=== PATIENT | male | born 1940 | race Caucasian/White ===

== ENCOUNTER 2019-03-16 00:20 | Inpatient (IN) | payer OTHER ==
[~2019-03-16] VITALS: Ht 165.1 cm; Wt 100.0 kg
[~2019-03-16 00:20] MED LIST: ASPI-817 PO; ATOR20TA38 PO; BECL8.7A INH; DOXY100T21 PO; ERGO500013 PO; FAMO20TA18 PO; FENO134C PO; FLUC100T39 PO; GABA300C16 PO; HYDR-3666 PO; IPRA3AMP29 HHN; LEVA1.2523 HHN; LEVA15HF6 INH; LIRA0.6P2 SQ; METF100010 PO; METO-319 PO; NATE120T PO; NYST1POW22 TOPICAL
[2019-03-16 00:29] VITALS: Ht 165.1 cm; Wt 100.0 kg
[2019-03-16] MEDS ORDERED: ACETAMINOPHEN 325 MG TAB PO STA (00:29)
[2019-03-16] MEDS ORDERED: SODIUM CHLORIDE 0.9% 1L BAG IV* STA (00:29)
[2019-03-16] MEDS ORDERED: CEFEPIME 2GM/50 ML (PMX) 50 ML IVPB STA (00:29)
[2019-03-16] MEDS ORDERED: VANCOMYCIN 1 GM (PMX) 250 ML IVPB ONE (00:30)
[2019-03-16] MEDS ORDERED: morphine 4 MG/ML VIAL IV STA (01:21)
[2019-03-16] MEDS ORDERED: CEFEPIME 1GM/50 ML (PMX) 50 ML IVPB STA (01:21)
[2019-03-16] MEDS ORDERED: ONDANSETRON 4 MG INJ IV STA (01:21)
--- NOTE | 2019-03-16 01:55 | ERD ---
ER Documentation Chief Complaint Chief Complaint [id number],from home,SOB HPI Is a 19-year-old male brought in by rescue with complaints of shortness of breath cough. Cough is mild productive. No fevers no chills. No other current complaints. Patient has been getting progressively short of breath over the past few days. ROS All systems reviewed and are negative except as per history of present illness. Medications Home Meds Active Scripts Doxycycline Monohydrate* (Doxycycline Monohydrate*) 100 Mg Tablet, 100 MG PO BID for 7 Days, TAB for Bronchitis Prov:SCOTT QUEZADA 08/20/16 Nystatin (Nystatin Powder) 1 Each Powder.ea., 1 APPLIC TOPICAL BID for 7 Days, #1 BOTTLE to affected area, perineal area Prov:SCOTT QUEZADA 08/20/16 Aspirin* (Aspirin* EC) 81 Mg Tablet.dr, 81 MG PO DAILY for 30 Days, 3 Refills Prov:SCOTT QUEZADA 08/20/16 Ipratropium-Albuterol (Ipratropium-Albuterol) 0.5-3 Mg/3 Ml Ampul.neb, 3 ML HHN Q8 for 30 Days, 3 Refills Prov:SCOTT QUEZADA 08/20/16 Levalbuterol Hcl* (Xopenex*) 1.25 Mg/0.5 Ml Vial.neb, 1.25 MG HHN Q6H RESP THERAPY PRN for wheeze/sob, #90 3 Refills Prov:SCOTT QUEZADA 08/20/16 Fluconazole* (Fluconazole*) 100 Mg Tablet, 100 MG PO DAILY for 7 Days, TAB Prov:SCOTT QUEZADA 08/20/16 Nateglinide* (Nateglinide*) 120 Mg Tablet, 120 MG PO AC MEALS for 30 Days, TAB 3 Refills Prov:SCOTT QUEZADA 08/20/16 Reported Medications Metoprolol Succinate* (Toprol XL*) 50 Mg Tab.er.24h, 50 MG PO DAILY, #30 TAB 08/18/16 Fenofibrate, Micronized (Fenofibrate) 134 Mg Capsule, 134 MG PO DAILY, CAP 08/18/16 Liraglutide (Victoza 3-Bong) 0.6 Mg/0.1 Ml Pen.injctr, 1.8 MG SQ DAILY, SYR 08/18/16 Levalbuterol* (Xopenex* HFA) 15 Gm Inha, 1 PUFFS INH Q8H PRN for WHEEZING AND SOB, INHALER 08/18/16 Beclomethasone Dip* (Qvar 40*) 7.3 Gm Inha, 1 PUFF INH BID, #1 INHALER 08/18/16 Ergocalciferol (Vitamin D2) (VITAMIN D2) 50,000 Unit Capsule, 21420 UNIT PO Q7D, CAP 08/18/16 Metformin Hcl* (Metformin Hcl*) 1,000 Mg Tablet, 1000 MG PO WITH BREAKFAST DINNE, #60 TAB 08/18/16 Atorvastatin Calcium* (Atorvastatin Calcium*) 20 Mg Tablet, 20 MG PO QHS, #30 TAB 08/18/16 Famotidine* (Famotidine*) 20 Mg Tablet, 20 MG PO BID, #60 TAB 08/18/16 Hydrocodone/Acetaminophen (Lorcet Hd 10-325 mg Tablet) 1 Each Tablet, 1 EACH PO QID, TAB 08/18/16 Gabapentin* (Gabapentin*) 300 Mg Capsule, 300 MG PO TID, #90 CAP 08/18/16 Allergies Allergies: Coded Allergies: No Known Allergy (Unverified , 08/18/16) PMhx/Soc History of Surgery: Yes (PTCA 1997, 1999 APPENDECTOMY) Anesthesia Reaction: No Hx Neurological Disorder: No Hx Respiratory Disorders: Yes (ASTHMA) Hx Cardiac Disorders: Yes (HTN,CHESTPAIN) Hx Psychiatric Problems: No Hx Miscellaneous Medical Probl: No Hx Alcohol Use: Yes (WINE DURING FAMILY OCCASIONS) Hx Substance Use: No Hx Tobacco Use: Yes (1- 1 1/2 PACKS/DAY) Smoking Status: Light tobacco smoker Physical Exam Vitals Vital Signs Date Temp Pulse Resp B/P (MAP) Pulse Ox O2 O2 Flow FiO2 Time Delivery Rate 03/16/19 102.9 00:40 03/16/19 103.9 110 23 143/69 90 00:29 (93) 03/16/19 Nasal 2.0 00:27 Cannula 03/16/19 Nasal 2 00:27 Cannula Physical Exam Const: No acute distress Head: Atraumatic Eyes: Normal Conjunctiva ENT: Normal External Ears, Nose and Mouth. Neck: Full range of motion. No meningismus. Resp: Clear to auscultation bilaterally Cardio: Regular rate and rhythm, no murmurs Abd: Soft, non tender, non distended. Normal bowel sounds Skin: No petechiae or rashes Back: No midline or flank tenderness Ext: No cyanosis, or edema Neur: Awake and alert Psych: Normal Mood and Affect Result Diagram: 03/16/192 03/16/192 Results 24 hrs Laboratory Tests Test 03/16/19 00:31 03/16/19 00:32 POC Venous Lactate 1.0 mmol/L White Blood Count 9.5 10^3/ul Red Blood Count 4.15 10^6/ul Hemoglobin 11.3 g/dl Hematocrit 35.2 % Mean Corpuscular Volume 84.8 fl Mean Corpuscular Hemoglobin 27.2 pg Mean Corpuscular Hemoglobin Concent 32.1 g/dl Red Cell Distribution Width 14.9 % Platelet Count 261 10^3/UL Mean Platelet Volume 10.0 fl Immature Granulocytes % 0.700 % Neutrophils % 73.0 % Lymphocytes % 14.2 % Monocytes % 10.5 % Eosinophils % 1.2 % Basophils % 0.4 % Nucleated Red Blood Cells % 0.0 /100WBC Immature Granulocytes # 0.070 10^3/ul Neutrophils # 6.9 10^3/ul Lymphocytes # 1.3 10^3/ul Monocytes # 1.0 10^3/ul Eosinophils # 0.1 10^3/ul Basophils # 0.0 10^3/ul Nucleated Red Blood Cells # 0.0 10^3/ul Prothrombin Time 14.8 Sec Prothrombin Time Ratio 1.2 INR International Normalized Ratio 1.15 Activated Partial Thromboplast Time 40.5 Sec Sodium Level 132 mmol/L Potassium Level 5.6 mmol/L Chloride Level 100 mmol/L Carbon Dioxide Level 19 mmol/L Anion Gap 13 Blood Urea Nitrogen 44 mg/dl Creatinine 2.13 mg/dl Est Glomerular Filtrat Rate mL/min mL/min Glucose Level 203 mg/dl Calcium Level 10.1 mg/dl Total Bilirubin 0.3 mg/dl Direct Bilirubin 0.00 mg/dl Indirect Bilirubin 0.3 mg/dl Aspartate Amino Transf (AST/SGOT) 70 IU/L Alanine Aminotransferase (ALT/SGPT) 68 IU/L Alkaline Phosphatase 76 IU/L Troponin I 0.022 ng/ml Total Protein 7.8 g/dl Albumin 4.1 g/dl Globulin 3.70 g/dl Albumin/Globulin Ratio 1.10 Current Medications Medications Dose Sig/Henri Start Time Status Last (Trade) Ordered Route PRN Stop Time Admin Dose Reason Admin Sodium 3,000 ml BOLUS OVER 2 03/16/19 DC 03/16/19 Chloride HOURS STAT 00:29 00:41 (NS) IV* 03/16/19 00:32 650 mg ONCE STAT 03/16/19 DC 03/16/19 Acetaminophen PO 00:29 00:40 (Tylenol 03/16/19 00:32 Tab) Cefepime HCl 50 ml @ ONCE STAT 03/16/19 DC 03/16/19 100 mls/hr IVPB 00:29 00:40 03/16/19 00:58 Vancomycin 250 ml @ ONCE ONCE 03/16/19 03/16/19 HCl 125 mls/hr IVPB 00:30 01:19 03/16/19 02:29 Cefepime HCl 50 ml @ ONCE STAT 03/16/19 DC 100 mls/hr IVPB 01:21 03/16/19 01:50 Morphine 4 mg ONCE STAT 03/16/19 DC 03/16/19 Sulfate IV 01:21 01:39 (morphine) 03/16/19 01:25 Ondansetron 4 mg ONCE STAT 03/16/19 DC 03/16/19 HCl (Zofran IV 01:21 01:38 Inj) 03/16/19 01:25 Procedures/MDM EKG: Rate/Rhythm: [Normal Sinus Rhythm] QRS, ST, T-waves: [No changes consistent w/ acute ischemia] Impression: [No evidence of ischemia or arrhythmia] Chest X-ray 1V Interpreted by me: Soft Tissue: No acute abnormalities Bones: No acute abnormalities Mediastinum/Cardiac Silhouette/Lungs: Right lower lobe infiltrate Medical decision makin-year-old male shortness of breath with evidence of right lower lobe pneumonia. Start antibiotics. No evidence of sepsis with negative lactic acid normalized vital signs. Patient will be admitted to Dr. Ayon for further evaluation and management to medical surgical floor Departure Diagnosis: Primary Impression: Pneumonia Pneumonia type: due to unspecified organism Laterality: unspecified laterality Lung location: unspecified part of lung Qualified Codes: J18.9 - Pneumonia, unspecified organism Condition: Serious KARI MOONEY Mar 16, 2019 01:55
[2019-03-16] MEDS ORDERED: ONDANSETRON 4 MG INJ IV PRN (02:00)
[2019-03-16] MEDS ORDERED: ACETAMINOPHEN 325 MG TAB PO PRN (02:00)
[2019-03-16] MEDS ORDERED: ATOR-2 PO (02:52)
[2019-03-16] MEDS ORDERED: LIRA0.6P SQ (03:59)
[2019-03-16] MEDS ORDERED: DAPA10TA PO (03:59)
[2019-03-16] MEDS ORDERED: INSU100I12 SQ ×2 (03:59)
[2019-03-16] MEDS ORDERED: OMEG-101 PO (03:59)
[2019-03-16] MEDS ORDERED: LANT3I SC (03:59)
[2019-03-16] MEDS ORDERED: SPIR50TA4 PO (03:59)
[2019-03-16] MEDS ORDERED: AMLO1CAP8 PO (03:59)
[2019-03-16] MEDS ORDERED: BUME1TAB PO (03:59)
--- NOTE | 2019-03-16 09:03 | HP ---
Date/Time of Note Date/Time of Note DATE: 03/16/19 TIME: 09:00 Assessment/Plan VTE Prophylaxis Pharmacological prophylaxis: LMWH Lines/Catheters IV Catheter Type (from Nrs): Saline Lock Assessment/Plan Hospital Course 79 years old male with history of heavy smoking, COPD presenting with shortness of breath in the setting of COPD exacerbation and multilobar pneumonia. Also acute renal failure and hyperkalemia noted #Multilobar lung infiltrate #CAP (community acquired pneumonia) #COPD exacerbation #SOB (shortness of breath) -Admit to telemetry -IV ceftriaxone and azithromycin for community-acquired pneumonia, ID consulted -Pulm consult -IV Solu-Medrol 40 every 8 hours and DuoNeb for COPD exacerbation #Right Pleuritic chest pain D-dimer elevated. Cannot do CT angiogram given NILTON -VQ scan to rule out pulmonary embolism # NILTON (acute kidney injury), prerenal azotemia #Hyperkalemia -IV bicarbonate drip for NILTON and hyperkalemia -Monitor creatinine -Avoid nephrotoxic agents, no dose medications #CAD S/P percutaneous coronary angioplasty Recent LHC at [facility] with unremarkable results -continue aspirin, statin, beta-romana - Serial troponin # Heavy smoker Counselled extensively - Nicotine patch # Diabetes mellitus with insulin therapy - A1C - Holding oral agents while inpatient - Lantus and sliding scale - ADA diet #HTN -continue Norvasc and metoprolol -Holding FABIAN inhibitor given NILTON and hyperkalemia #PPX: Lovenox and Pepcid Problems: (1) Multilobar lung infiltrate (2) CAP (community acquired pneumonia) (3) SOB (shortness of breath) (4) COPD exacerbation (5) NILTON (acute kidney injury) (6) Pleuritic chest pain (7) CAD S/P percutaneous coronary angioplasty (8) Heavy smoker (9) Hyperkalemia (10) Diabetes mellitus with insulin therapy Result Diagram: 03/16/19 0032 03/16/19 0032 Results 24hrs Laboratory Tests Test 03/16/19 00:31 03/16/19 00:32 03/16/19 02:06 03/16/19 03:29 POC Venous Lactate 1.0 White Blood Count 9.5 # Red Blood Count 4.15 L Hemoglobin 11.3 L Hematocrit 35.2 L Mean Corpuscular 84.8 Volume Mean Corpuscular 27.2 L Hemoglobin Mean Corpuscular 32.1 Hemoglobin Concent Red Cell 14.9 H Distribution Width Platelet Count 261 Mean Platelet Volume 10.0 Immature 0.700 H Granulocytes % Neutrophils % 73.0 Lymphocytes % 14.2 L Monocytes % 10.5 Eosinophils % 1.2 Basophils % 0.4 Nucleated Red Blood 0.0 Cells % Immature 0.070 H Granulocytes # Neutrophils # 6.9 Lymphocytes # 1.3 Monocytes # 1.0 H Eosinophils # 0.1 Basophils # 0.0 Nucleated Red Blood 0.0 Cells # Prothrombin Time 14.8 Prothrombin Time 1.2 Ratio INR International 1.15 Normalized Ratio Activated 40.5 H Partial Thromboplast Time Sodium Level 132 L Potassium Level 5.6 H Chloride Level 100 Carbon Dioxide Level 19 L Anion Gap 13 Blood Urea Nitrogen 44 H Creatinine 2.13 H Est Glomerular Filtrat Rate mL/min Glucose Level 203 Calcium Level 10.1 Total Bilirubin 0.3 Direct Bilirubin 0.00 Indirect Bilirubin 0.3 Aspartate Amino 70 H Transf (AST/SGOT) Alanine 68 Aminotransferase (AL T/SGPT) Alkaline Phosphatase 76 Troponin I 0.022 Total Protein 7.8 Albumin 4.1 Globulin 3.70 H Albumin/Globulin 1.10 Ratio Urine Color YELLOW Urine Clarity CLEAR Urine pH 5.0 Urine Specific 1.017 [place] Urine Ketones TRACE A Urine Nitrite NEGATIVE Urine Bilirubin NEGATIVE Urine Urobilinogen NEGATIVE Urine Leukocyte NEGATIVE Esterase Urine Hemoglobin NEGATIVE Urine Glucose 3+ H Urine Total Protein NEGATIVE Lactic Acid Level 0.8 Test 03/16/19 05:25 Lactic Acid Level 0.8 HPI/ROS Admit Date/Time Admit Date/Time Hx of Present Illness 79 years old on male with past medical history of COPD, CAD status post stent, heavy smoking, insulin-dependent diabetes, hypertension, hyperlipidemia who presents with 2 days of shortness of breath associated with mild productive cough and right lower pleuritic chest pain. Denies fever or chills. Denies Orthopnea, denies paroxysmal nocturnal dyspnea , denies increasing peripheral edema . He was admitted to [facility] in Oct 23 for elevated troponin where LHC was done with unremarkable results. He smokes 1 pck a day and has smoked for most of his life. He is not willing to quit. Work up in the ED was significant for mild hyponatremia, hyperkalemia at 5.6, acute renal failure and chest x-ray findings suggestive of Right mid lung pneumonia. PMH/Family/Social Past Medical History Medications Current Medications Ondansetron HCl (Zofran Inj) 4 mg BRIDGE ORDER PRN IV NAUSEA/VOMITING; Start 03/16/19 at 02:00; Stop 03/17/19 at 01:59 Acetaminophen (Tylenol Tab) 650 mg ER BRIDGE PRN PO .MILD PAIN 1-3 OR TEMP; Start 03/16/19 at 02:00; Stop 03/17/19 at 01:59 Coded Allergies: No Known Allergy (Unverified , 03/16/19) Past Surgical History Past Surgical Hx: angioplasty Family History Significant Family History: no pertinent family hx, heart disease Social History Smoking Status: Light tobacco smoker Exam/Review of Systems Vital Signs Vitals Vital Signs Date Temp Pulse Resp B/P (MAP) Pulse Ox O2 O2 Flow FiO2 Time Delivery Rate 03/16/19 85 22 106/51 95 Nasal 2.0 05:30 (69) Cannula 03/16/19 102.9 00:40 Exam Exam Gen.: In no acute distress, pleasant and cooperative Eyes: Anicteric, conjunctiva normal, PERRLA, EOM intact HEENT: Normocephalic, atraumatic, hearing grossly intact, oral mucosa dry no oral lesions Neck: Supple, no masses, trachea midline Cardiovascular: Regular rate and rhythm, no peripheral edema, no murmurs, no gallops, no rubs Respiratory: no use of accessory muscles of respiration, bilateral inspiratory wheezes, expiration mildly prolonged Extremities: No cyanosis, no edema, no calf tenderness, pulses bilaterally palpable, extremities warm and perfused Abdomen: Soft, not distended, nontender, bowel sounds present, no guarding, no rebound Neurological: Alert and oriented x3, speech normal, CN 2-12 no deficit, no motor or sensory deficit, coordination normal : No Aguilar catheter Heme: No acute bleeding, no ecchymosis or petechia Psych: No anxiety depression, mood and affect appropriate GEOVANY OGDEN MD Mar 16, 2019 09:03
[2019-03-16] MEDS ORDERED: DOCUSATE SODIUM 100 MG CAP PO PRN (09:30)
[2019-03-16] MEDS ORDERED: NACL 0.9% 3 ML SYG IV SCH (09:30)
[2019-03-16] MEDS ORDERED: AMLODIPINE 10 MG TAB PO ONE (09:30)
[2019-03-16] MEDS: ASPIRIN (EC) 81 MG TAB PO SCH (10:06)
[2019-03-16] MEDS: CEFTRIAXONE 1 GM/50 ML (PMX) 50 ML IVPB SCH (10:08)
[2019-03-16] MEDS: SOD CHLORIDE 0.9% 1,000 ML IV SCH ×2 (10:19→19:03)
[2019-03-16] MEDS ORDERED: GLUCAGON 1 MG INJ IM PRN (11:00)
[2019-03-16] MEDS ORDERED: GLUCOSE GEL 15 GRAM TUBE BUCCAL PRN (11:00)
[2019-03-16] MEDS ORDERED: DEXTROSE 50% 50 ML SYRINGE IV PRN ×2 (11:00)
[2019-03-16] MEDS ORDERED: GLUCOSE GEL 15 GRAM TUBE PO PRN ×2 (11:00)
[2019-03-16] MEDS: AZITHROMYCIN 500MG/NS (PMX) 250 ML IV SCH (11:02)
[2019-03-16] MEDS: HYDROCODONE/APAP (5/325) TAB PO PRN ×2 (12:40→20:44)
[2019-03-16] MEDS: IPRATROPIUM (NEB) 0.5 MG/2.5 ML AMP NEB SCH ×3 (13:10→20:31)
[2019-03-16] MEDS: ALBUTEROL 0.083% (NEB) 2.5 MG/3 ML AMP NEB SCH ×3 (13:10→20:31)
[2019-03-16 13:29] VITALS: BP 137/66; PULSE 91; RESP 22
[2019-03-16] MEDS ORDERED: NA BICARBONATE 8.4% 50 ML SYG IV ONE (13:30)
[2019-03-16] MEDS: METHYLPREDNISOLONE 125 MG INJ IV SCH ×2 (13:48→22:56)
[2019-03-16] MEDS: GABAPENTIN 300 MG CAP PO SCH ×2 (13:48→20:44)
[2019-03-16] MEDS: INSULIN ASPART [NOVOLOG] 3 ML PEN SC SCH ×3 (14:09→20:46)
[2019-03-16] MEDS ORDERED: SODIUM BICARBONATE (IV ADD) 50 MEQ in SOD CHLORIDE 0.45% 1,000 ML IV SCH (15:00)
--- NOTE | 2019-03-16 18:29 | CONS ---
Consultation Date/Type/Reason Admit Date/Time Date/Time of Note DATE: 03/16/19 TIME: 18:29 Past Medical History Home Meds Active Scripts Doxycycline Monohydrate* (Doxycycline Monohydrate*) 100 Mg Tablet, 100 MG PO BID for 7 Days, TAB for Bronchitis Prov:SCOTT QUEZADA 08/20/16 Nystatin (Nystatin Powder) 1 Each Powder.ea., 1 APPLIC TOPICAL BID for 7 Days, #1 BOTTLE to affected area, perineal area Prov:SCOTT QUEZADA 08/20/16 Aspirin* (Aspirin* EC) 81 Mg Tablet.dr, 81 MG PO DAILY for 30 Days, 3 Refills Prov:SCOTT QUEZADA 08/20/16 Ipratropium-Albuterol (Ipratropium-Albuterol) 0.5-3 Mg/3 Ml Ampul.neb, 3 ML HHN Q8 for 30 Days, 3 Refills Prov:SCOTT QUEZADA 08/20/16 Levalbuterol Hcl* (Xopenex*) 1.25 Mg/0.5 Ml Vial.neb, 1.25 MG HHN Q6H RESP THERAPY PRN for wheeze/sob, #90 3 Refills Prov:SCOTT QUEZADA 08/20/16 Fluconazole* (Fluconazole*) 100 Mg Tablet, 100 MG PO DAILY for 7 Days, TAB Prov:SCOTT QUEZADA 08/20/16 Nateglinide* (Nateglinide*) 120 Mg Tablet, 120 MG PO AC MEALS for 30 Days, TAB 3 Refills Prov:SCOTT QUEZADA 08/20/16 Reported Medications Amlodipine Besylate/Benazepril (Amlodipine-Benazepril 5-10 mg) 1 Each Capsule, 1 TAB PO DAILY for 30 Days, #30 03/16/19 Insulin Glargine* (Lantus*) 100 Unit/Ml Soln, 40 UNIT SC QHS, #1 VIAL 03/16/19 Liraglutide (Victoza 2-Bong) 0.6 Mg/0.1 Ml Pen.injctr, 0.6 MG SQ QAM, SYR 03/16/19 Insulin Lispro (Humalog Kwikpen U-100) 100 Unit/1 Ml Insuln.pen, 18 UNIT SQ AC LUNCH AND DINNER, EA 03/16/19 Insulin Lispro (Humalog Kwikpen U-100) 100 Unit/1 Ml Insuln.pen, 9 UNIT SQ AC BREAKFAST, EA 03/16/19 [place]-3 Acid Ethyl Esters ([place]-3 Acid Ethyl Esters) 1 Gm Capsule, 1 GM PO BID for 30 Days 03/16/19 Spironolactone* (Aldactone*) 50 Mg Tablet, 50 MG PO DAILY for 30 Days, #30 03/16/19 Bumetanide* (Bumetanide*) 1 Mg Tablet, 1 MG PO BID for 30 Days, #30 03/16/19 Dapagliflozin Propanediol (Farxiga) 10 Mg Tablet, 10 MG PO QPM for 30 Days, #30 03/16/19 Atorvastatin* (Atorvastatin*) 80 Mg Tablet, 80 MG PO QHS, #30 TAB 03/16/19 Metoprolol Succinate* (Toprol XL*) 50 Mg Tab.er.24h, 50 MG PO DAILY, #30 TAB 08/18/16 Fenofibrate, Micronized (Fenofibrate) 134 Mg Capsule, 134 MG PO DAILY, CAP 08/18/16 Liraglutide (Victoza 3-Bong) 0.6 Mg/0.1 Ml Pen.injctr, 1.8 MG SQ DAILY, SYR 08/18/16 Levalbuterol* (Xopenex* HFA) 15 Gm Inha, 1 PUFFS INH Q8H PRN for WHEEZING AND SOB, INHALER 08/18/16 Beclomethasone Dip* (Qvar 40*) 7.3 Gm Inha, 1 PUFF INH BID, #1 INHALER 08/18/16 Ergocalciferol (Vitamin D2) (VITAMIN D2) 50,000 Unit Capsule, 81317 UNIT PO Q7D for QSATUR, CAP 08/18/16 Metformin Hcl* (Metformin Hcl*) 1,000 Mg Tablet, 1000 MG PO WITH BREAKFAST DINNE, #60 TAB 08/18/16 Famotidine* (Famotidine*) 20 Mg Tablet, 20 MG PO BID, #60 TAB 08/18/16 Hydrocodone/Acetaminophen (Lorcet Hd 10-325 mg Tablet) 1 Each Tablet, 1 EACH PO QID, TAB 08/18/16 Gabapentin* (Gabapentin*) 300 Mg Capsule, 600 MG PO TID, #90 CAP 08/18/16 Discontinued Reported Medications Atorvastatin Calcium* (Atorvastatin Calcium*) 20 Mg Tablet, 20 MG PO QHS, #30 TAB 08/18/16 Medications Current Medications Sodium Chloride 1,000 ml @ 100 mls/hr Q10H IV Last administered on 03/16/19 10:19; Admin Dose 100 MLS/HR; Start 03/16/19 at 09:03 IV Flush (NS 3 ml) 3 ml PER PROTOCOL IV ; Start 03/16/19 at 09:30 Methylprednisolone Sodium Succinate (Solu-Medrol) 40 mg Q8 IV Last administered on 03/16/19 13:48; Admin Dose 40 MG; Start 03/16/19 at 14:00 Acetaminophen/ Hydrocodone Bitart ([place] (5/325)) 1 tab Q6H PRN PO .PAIN 4-6 Last administered on 03/16/19 12:40; Admin Dose 1 TAB; Start 03/16/19 at 09:30 Docusate Sodium (Colace) 100 mg Q12H PRN PO .CONSTIPATION; Start 03/16/19 at 09:30 Enoxaparin Sodium (Lovenox) 30 mg DAILY SC ; Start 03/17/19 at 09:00 Albuterol (Proventil 0.083% (Neb)) 2.5 mg Q4H RESP THERAPY NEB Last administered on 03/16/19 13:10; Admin Dose 2.5 MG; Start 03/16/19 at 13:00 Ipratropium [place] (Atrovent 0.02% (Neb)) 0.5 mg Q4H RESP THERAPY NEB Last administered on 03/16/19 13:10; Admin Dose 0.5 MG; Start 03/16/19 at 13:00 Ceftriaxone Sodium 50 ml @ 100 mls/hr Q24H IVPB Last administered on 03/16/19 10:08; Admin Dose 100 MLS/HR; Start 03/16/19 at 10:30 Azithromycin 250 ml @ 250 mls/hr Q24H IV Last administered on 03/16/19 11:02; Admin Dose 250 MLS/HR; Start 03/16/19 at 09:30 Aspirin (Halfprin) 81 mg DAILY PO Last administered on 03/16/19 10:06; Admin Dose 81 MG; Start 03/16/19 at 09:30 Atorvastatin Calcium (Lipitor) 80 mg QHS PO ; Start 03/16/19 at 21:00 Gabapentin (Neurontin) 600 mg TID PO Last administered on 03/16/19at 13:48; Admin Dose 600 MG; Start 03/16/19 at 13:00 Metoprolol Succinate (Toprol Xl) 50 mg DAILY PO ; Start 03/17/19 at 09:00 Spironolactone (Aldactone) 50 mg DAILY PO ; Start 03/17/19 at 09:00 Insulin Glargine (Lantus) 30 units DAILY@2000 SC ; Start 03/16/19 at 20:00 Insulin Aspart (Novolog Insulin Pen) NOVOLOG *MODERATE* ALGORITHM WITH MEALS BEDTIME SC Last administered on 03/16/19at 17:09; Admin Dose 10 UNIT; Start 03/16/19 at 12:00 Miscellaneous Information 1 ea NOTE XX ; Start 03/16/19 at 11:00 Glucose (Glutose) 15 gm Q15M PRN PO DECREASED GLUCOSE; Start 03/16/19 at 11:00 Glucose (Glutose) 22.5 gm Q15M PRN PO DECREASED GLUCOSE; Start 03/16/19 at 11:00 Dextrose (D50w Syringe) 25 ml Q15M PRN IV DECREASED GLUCOSE; Start 03/16/19 at 11:00 Dextrose (D50w Syringe) 50 ml Q15M PRN IV DECREASED GLUCOSE; Start 03/16/19 at 11:00 Glucagon (Glucagen) 1 mg Q15M PRN IM DECREASED GLUCOSE; Start 03/16/19 at 11:00 Glucose (Glutose) 15 gm Q15M PRN BUCCAL DECREASED GLUCOSE; Start 03/16/19 at 11:00 Sodium Bicarbonate 50 meq/Sodium Chloride 1,050 ml @ 100 mls/hr [id number] IV Last administered on 03/16/19at 17:40; Admin Dose 100 MLS/HR; Start 03/16/19 at 15:00; Stop 03/17/19 at 01:29 Allergies: Coded Allergies: No Known Allergy (Unverified , 03/16/19) Past Surgical History Past Surgical Hx: angioplasty Social History Smoking Status: Current every day smoker Exam/Review of Systems Exam Vitals Vital Signs Date Temp Pulse Resp B/P (MAP) Pulse Ox O2 O2 Flow FiO2 Time Delivery Rate 6/12/19 2.0 15:15 03/16/19 98.3 91 22 137/66 92 13:29 (89) 03/16/19 Nasal 13:11 Cannula Results Result Diagram: 03/16/19 0032 03/16/19 0032 Results 24hrs Laboratory Tests Test 03/16/19 00:31 03/16/19 00:32 03/16/19 02:06 03/16/19 03:29 POC Venous Lactate 1.0 White Blood Count 9.5 # Red Blood Count 4.15 L Hemoglobin 11.3 L Hematocrit 35.2 L Mean Corpuscular 84.8 Volume Mean Corpuscular 27.2 L Hemoglobin Mean Corpuscular 32.1 Hemoglobin Concent Red Cell 14.9 H Distribution Width Platelet Count 261 Mean Platelet Volume 10.0 Immature 0.700 H Granulocytes % Neutrophils % 73.0 Lymphocytes % 14.2 L Monocytes % 10.5 Eosinophils % 1.2 Basophils % 0.4 Nucleated Red Blood 0.0 Cells % Immature 0.070 H Granulocytes # Neutrophils # 6.9 Lymphocytes # 1.3 Monocytes # 1.0 H Eosinophils # 0.1 Basophils # 0.0 Nucleated Red Blood 0.0 Cells # Prothrombin Time 14.8 Prothrombin Time 1.2 Ratio INR International 1.15 Normalized Ratio Activated 40.5 H Partial Thromboplast Time Sodium Level 132 L Potassium Level 5.6 H Chloride Level 100 Carbon Dioxide Level 19 L Anion Gap 13 Blood Urea Nitrogen 44 H Creatinine 2.13 H Est Glomerular Filtrat Rate mL/min Glucose Level 203 Calcium Level 10.1 Total Bilirubin 0.3 Direct Bilirubin 0.00 Indirect Bilirubin 0.3 Aspartate Amino 70 H Transf (AST/SGOT) Alanine 68 Aminotransferase (AL T/SGPT) Alkaline Phosphatase 76 Troponin I 0.022 Total Protein 7.8 Albumin 4.1 Globulin 3.70 H Albumin/Globulin 1.10 Ratio Urine Color YELLOW Urine Clarity CLEAR Urine pH 5.0 Urine Specific 1.017 [place] Urine Ketones TRACE A Urine Nitrite NEGATIVE Urine Bilirubin NEGATIVE Urine Urobilinogen NEGATIVE Urine Leukocyte NEGATIVE Esterase Urine Hemoglobin NEGATIVE Urine Glucose 3+ H Urine Total Protein NEGATIVE Lactic Acid Level 0.8 Test 03/16/19 05:25 03/16/19 08:27 03/16/19 09:27 03/16/19 13:45 Lactic Acid Level 0.8 D-Dimer 2638.43 #H D-Dimer Comment Creatine Kinase 116 Creatine Kinase 1.7 Index Creatinine Kinase MB 1.99 (Mass) Troponin I 0.015 Bedside Glucose 227 H Test 03/16/19 15:29 03/16/19 17:07 Creatine Kinase 118 Creatine Kinase 1.5 Index Creatinine Kinase MB 1.79 (Mass) Troponin I 0.017 Bedside Glucose 337 H Medications Medication Current Medications Sodium Chloride 1,000 ml @ 100 mls/hr Q10H IV Last administered on 03/16/19 10:19; Admin Dose 100 MLS/HR; Start 03/16/19 at 09:03 IV Flush (NS 3 ml) 3 ml PER PROTOCOL IV ; Start 03/16/19 at 09:30 Methylprednisolone Sodium Succinate (Solu-Medrol) 40 mg Q8 IV Last administered on 03/16/19 13:48; Admin Dose 40 MG; Start 03/16/19 at 14:00 Acetaminophen/ Hydrocodone Bitart ([place] (5/325)) 1 tab Q6H PRN PO .PAIN 4-6 Last administered on 03/16/19at 12:40; Admin Dose 1 TAB; Start 03/16/19 at 09:30 Docusate Sodium (Colace) 100 mg Q12H PRN PO .CONSTIPATION; Start 03/16/19 at 09:30 Enoxaparin Sodium (Lovenox) 30 mg DAILY SC ; Start 03/17/19 at 09:00 Albuterol (Proventil 0.083% (Neb)) 2.5 mg Q4H RESP THERAPY NEB Last administered on 03/16/19 13:10; Admin Dose 2.5 MG; Start 03/16/19 at 13:00 Ipratropium [place] (Atrovent 0.02% (Neb)) 0.5 mg Q4H RESP THERAPY NEB Last administered on 03/16/19 13:10; Admin Dose 0.5 MG; Start 03/16/19 at 13:00 Ceftriaxone Sodium 50 ml @ 100 mls/hr Q24H IVPB Last administered on 03/16/19 10:08; Admin Dose 100 MLS/HR; Start 03/16/19 at 10:30 Azithromycin 250 ml @ 250 mls/hr Q24H IV Last administered on 03/16/19 11:02; Admin Dose 250 MLS/HR; Start 03/16/19 at 09:30 Aspirin (Halfprin) 81 mg DAILY PO Last administered on 03/16/19at 10:06; Admin Dose 81 MG; Start 03/16/19 at 09:30 Atorvastatin Calcium (Lipitor) 80 mg QHS PO ; Start 03/16/19 at 21:00 Gabapentin (Neurontin) 600 mg TID PO Last administered on 03/16/19at 13:48; Admin Dose 600 MG; Start 03/16/19 at 13:00 Metoprolol Succinate (Toprol Xl) 50 mg DAILY PO ; Start 03/17/19 at 09:00 Spironolactone (Aldactone) 50 mg DAILY PO ; Start 03/17/19 at 09:00 Insulin Glargine (Lantus) 30 units DAILY@2000 SC ; Start 03/16/19 at 20:00 Insulin Aspart (Novolog Insulin Pen) NOVOLOG *MODERATE* ALGORITHM WITH MEALS BEDTIME SC Last administered on 03/16/19at 17:09; Admin Dose 10 UNIT; Start 03/16/19 at 12:00 Miscellaneous Information 1 ea NOTE XX ; Start 03/16/19 at 11:00 Glucose (Glutose) 15 gm Q15M PRN PO DECREASED GLUCOSE; Start 03/16/19 at 11:00 Glucose (Glutose) 22.5 gm Q15M PRN PO DECREASED GLUCOSE; Start 03/16/19 at 11:00 Dextrose (D50w Syringe) 25 ml Q15M PRN IV DECREASED GLUCOSE; Start 03/16/19 at 11:00 Dextrose (D50w Syringe) 50 ml Q15M PRN IV DECREASED GLUCOSE; Start 03/16/19 at 11:00 Glucagon (Glucagen) 1 mg Q15M PRN IM DECREASED GLUCOSE; Start 03/16/19 at 11:00 Glucose (Glutose) 15 gm Q15M PRN BUCCAL DECREASED GLUCOSE; Start 03/16/19 at 11:00 Sodium Bicarbonate 50 meq/Sodium Chloride 1,050 ml @ 100 mls/hr [id number] IV Last administered on 03/16/19at 17:40; Admin Dose 100 MLS/HR; Start 03/16/19 at 15:00; Stop 03/17/19 at 01:29 SUELLEN MCKNIGHT MD Mar 16, 2019 18:29
--- NOTE | 2019-03-16 18:38 | CONS ---
Assessment/Plan Assessment/Plan Hospital Course (Demo Recall) 1. CAP 2. COPD 3. DM 4. HTN 5. Hyperlipidemia R: copnt. current abx f/u sputum serial cxr f/u bcxs low threshold to add Vanco if fails to improve will review [facility] Consultation Date/Type/Reason Admit Date/Time Date of Consultation: Mar 16, 2019 Type of Consult ID Reason for Consultation ABX RECS Requesting Provider: GEOVANY OGDEN MD Date/Time of Note DATE: 03/16/19 TIME: 18:29 Hx of Present Illness 79 YO male with pmh of copd, cad, heavy smoking, DM, htn, hyperlipidemia, hx of recent admit at [facility], admitted with sob and infiltrate. He has been placed on CTX/Azithromycin. I discussed the case over the phone with his daughter Constitutional: no complaints Respiratory: cough, shortness of breath, sputum Cardiovascular: no complaints Gastrointestinal: no complaints Genitourinary: no complaints Musculoskeletal: no complaints Skin: no complaints Neurologic: no complaints Past Medical History Home Meds Active Scripts Doxycycline Monohydrate* (Doxycycline Monohydrate*) 100 Mg Tablet, 100 MG PO BID for 7 Days, TAB for Bronchitis Prov:Huong QUEZADAShanteACEROSY 08/20/16 Nystatin (Nystatin Powder) 1 Each Powder.ea., 1 APPLIC TOPICAL BID for 7 Days, #1 BOTTLE to affected area, perineal area Prov:Huong QUEZADAShanteLACEY Hall 08/20/16 Aspirin* (Aspirin* EC) 81 Mg Tablet.dr, 81 MG PO DAILY for 30 Days, 3 Refills Prov:SCOTT QUEZADA 08/20/16 Ipratropium-Albuterol (Ipratropium-Albuterol) 0.5-3 Mg/3 Ml Ampul.neb, 3 ML HHN Q8 for 30 Days, 3 Refills Prov:DAMIEN,NShanteLACEY 08/20/16 Levalbuterol Hcl* (Xopenex*) 1.25 Mg/0.5 Ml Vial.neb, 1.25 MG HHN Q6H RESP THERAPY PRN for wheeze/sob, #90 3 Refills Prov:SCOTT QUEZADA 08/20/16 Fluconazole* (Fluconazole*) 100 Mg Tablet, 100 MG PO DAILY for 7 Days, TAB Prov:SCOTT QUEZADA F 08/20/16 Nateglinide* (Nateglinide*) 120 Mg Tablet, 120 MG PO AC MEALS for 30 Days, TAB 3 Refills Prov:SCOTT QUEZADA 08/20/16 Reported Medications Amlodipine Besylate/Benazepril (Amlodipine-Benazepril 5-10 mg) 1 Each Capsule, 1 TAB PO DAILY for 30 Days, #30 03/16/19 Insulin Glargine* (Lantus*) 100 Unit/Ml Soln, 40 UNIT SC QHS, #1 VIAL 03/16/19 Liraglutide (Victoza 2-Bong) 0.6 Mg/0.1 Ml Pen.injctr, 0.6 MG SQ QAM, SYR 03/16/19 Insulin Lispro (Humalog Kwikpen U-100) 100 Unit/1 Ml Insuln.pen, 18 UNIT SQ AC LUNCH AND DINNER, EA 03/16/19 Insulin Lispro (Humalog Kwikpen U-100) 100 Unit/1 Ml Insuln.pen, 9 UNIT SQ AC BREAKFAST, EA 03/16/19 Apex-3 Acid Ethyl Esters (Apex-3 Acid Ethyl Esters) 1 Gm Capsule, 1 GM PO BID for 30 Days 03/16/19 Spironolactone* (Aldactone*) 50 Mg Tablet, 50 MG PO DAILY for 30 Days, #30 03/16/19 Bumetanide* (Bumetanide*) 1 Mg Tablet, 1 MG PO BID for 30 Days, #30 03/16/19 Dapagliflozin Propanediol (Farxiga) 10 Mg Tablet, 10 MG PO QPM for 30 Days, #30 03/16/19 Atorvastatin* (Atorvastatin*) 80 Mg Tablet, 80 MG PO QHS, #30 TAB 03/16/19 Metoprolol Succinate* (Toprol XL*) 50 Mg Tab.er.24h, 50 MG PO DAILY, #30 TAB 08/18/16 Fenofibrate, Micronized (Fenofibrate) 134 Mg Capsule, 134 MG PO DAILY, CAP 08/18/16 Liraglutide (Victoza 3-Bong) 0.6 Mg/0.1 Ml Pen.injctr, 1.8 MG SQ DAILY, SYR 08/18/16 Levalbuterol* (Xopenex* HFA) 15 Gm Inha, 1 PUFFS INH Q8H PRN for WHEEZING AND SOB, INHALER 08/18/16 Beclomethasone Dip* (Qvar 40*) 7.3 Gm Inha, 1 PUFF INH BID, #1 INHALER 08/18/16 Ergocalciferol (Vitamin D2) (VITAMIN D2) 50,000 Unit Capsule, 87880 UNIT PO Q7D for QSATURDAY, CAP 08/18/16 Metformin Hcl* (Metformin Hcl*) 1,000 Mg Tablet, 1000 MG PO WITH BREAKFAST DINNE, #60 TAB 08/18/16 Famotidine* (Famotidine*) 20 Mg Tablet, 20 MG PO BID, #60 TAB 08/18/16 Hydrocodone/Acetaminophen (Lorcet Hd 10-325 mg Tablet) 1 Each Tablet, 1 EACH PO QID, TAB 08/18/16 Gabapentin* (Gabapentin*) 300 Mg Capsule, 600 MG PO TID, #90 CAP 08/18/16 Discontinued Reported Medications Atorvastatin Calcium* (Atorvastatin Calcium*) 20 Mg Tablet, 20 MG PO QHS, #30 TAB 08/18/16 Medications Current Medications Sodium Chloride 1,000 ml @ 100 mls/hr Q10H IV Last administered on 03/16/19at 10:19; Admin Dose 100 MLS/HR; Start 03/16/19 at 09:03 IV Flush (NS 3 ml) 3 ml PER PROTOCOL IV ; Start 03/16/19 at 09:30 Methylprednisolone Sodium Succinate (Solu-Medrol) 40 mg Q8 IV Last administered on 03/16/19at 13:48; Admin Dose 40 MG; Start 03/16/19 at 14:00 Acetaminophen/ Hydrocodone Bitart ([place] (5/325)) 1 tab Q6H PRN PO .PAIN 4-6 Last administered on 03/16/19at 12:40; Admin Dose 1 TAB; Start 03/16/19 at 09:30 Docusate Sodium (Colace) 100 mg Q12H PRN PO .CONSTIPATION; Start 03/16/19 at 09:30 Enoxaparin Sodium (Lovenox) 30 mg DAILY SC ; Start 03/17/19 at 09:00 Albuterol (Proventil 0.083% (Neb)) 2.5 mg Q4H RESP THERAPY NEB Last administered on 03/16/19at 13:10; Admin Dose 2.5 MG; Start 03/16/19 at 13:00 Ipratropium [place] (Atrovent 0.02% (Neb)) 0.5 mg Q4H RESP THERAPY NEB Last administered on 03/16/19at 13:10; Admin Dose 0.5 MG; Start 03/16/19 at 13:00 Ceftriaxone Sodium 50 ml @ 100 mls/hr Q24H IVPB Last administered on 03/16/19at 10:08; Admin Dose 100 MLS/HR; Start 03/16/19 at 10:30 Azithromycin 250 ml @ 250 mls/hr Q24H IV Last administered on 03/16/19at 11:02; Admin Dose 250 MLS/HR; Start 03/16/19 at 09:30 Aspirin (Halfprin) 81 mg DAILY PO Last administered on 03/16/19at 10:06; Admin Dose 81 MG; Start 03/16/19 at 09:30 Atorvastatin Calcium (Lipitor) 80 mg QHS PO ; Start 03/16/19 at 21:00 Gabapentin (Neurontin) 600 mg TID PO Last administered on 03/16/19at 13:48; Admin Dose 600 MG; Start 03/16/19 at 13:00 Metoprolol Succinate (Toprol Xl) 50 mg DAILY PO ; Start 03/17/19 at 09:00 Spironolactone (Aldactone) 50 mg DAILY PO ; Start 03/17/19 at 09:00 Insulin Glargine (Lantus) 30 units DAILY@2000 SC ; Start 03/16/19 at 20:00 Insulin Aspart (Novolog Insulin Pen) NOVOLOG *MODERATE* ALGORITHM WITH MEALS BEDTIME SC Last administered on 03/16/19at 17:09; Admin Dose 10 UNIT; Start 03/16/19 at 12:00 Miscellaneous Information 1 ea NOTE XX ; Start 03/16/19 at 11:00 Glucose (Glutose) 15 gm Q15M PRN PO DECREASED GLUCOSE; Start 03/16/19 at 11:00 Glucose (Glutose) 22.5 gm Q15M PRN PO DECREASED GLUCOSE; Start 03/16/19 at 11:00 Dextrose (D50w Syringe) 25 ml Q15M PRN IV DECREASED GLUCOSE; Start 03/16/19 at 11:00 Dextrose (D50w Syringe) 50 ml Q15M PRN IV DECREASED GLUCOSE; Start 03/16/19 at 11:00 Glucagon (Glucagen) 1 mg Q15M PRN IM DECREASED GLUCOSE; Start 03/16/19 at 11:00 Glucose (Glutose) 15 gm Q15M PRN BUCCAL DECREASED GLUCOSE; Start 03/16/19 at 11:00 Sodium Bicarbonate 50 meq/Sodium Chloride 1,050 ml @ 100 mls/hr [id number] IV Last administered on 03/16/19at 17:40; Admin Dose 100 MLS/HR; Start 03/16/19 at 15:00; Stop 03/17/19 at 01:29 Allergies: Coded Allergies: No Known Allergy (Unverified , 03/16/19) Past Surgical History Past Surgical Hx: angioplasty Social History Smoking Status: Current every day smoker Exam/Review of Systems Exam Vitals Vital Signs Date Temp Pulse Resp B/P (MAP) Pulse Ox O2 O2 Flow FiO2 Time Delivery Rate 03/16/19 2.0 15:15 03/16/19 98.3 91 22 137/66 92 13:29 (89) 03/16/19 Nasal 13:11 Cannula Constitutional: alert Psych: no complaints, nl mood/affect Head: normocephalic, atraumatic Eyes: EOMI Neck: supple Respiratory: congested cough, diminished breath sounds Cardiovascular: regular rate and rhythm Gastrointestinal: soft Neurological: PERSONNEL COORDINATOR II-XII intact Results Result Diagram: 03/16/19 0032 03/16/19 0032 Results 24hrs Laboratory Tests Test 03/16/19 00:31 03/16/19 00:32 03/16/19 02:06 03/16/19 03:29 POC Venous Lactate 1.0 White Blood Count 9.5 # Red Blood Count 4.15 L Hemoglobin 11.3 L Hematocrit 35.2 L Mean Corpuscular 84.8 Volume Mean Corpuscular 27.2 L Hemoglobin Mean Corpuscular 32.1 Hemoglobin Concent Red Cell 14.9 H Distribution Width Platelet Count 261 Mean Platelet Volume 10.0 Immature 0.700 H Granulocytes % Neutrophils % 73.0 Lymphocytes % 14.2 L Monocytes % 10.5 Eosinophils % 1.2 Basophils % 0.4 Nucleated Red Blood 0.0 Cells % Immature 0.070 H Granulocytes # Neutrophils # 6.9 Lymphocytes # 1.3 Monocytes # 1.0 H Eosinophils # 0.1 Basophils # 0.0 Nucleated Red Blood 0.0 Cells # Prothrombin Time 14.8 Prothrombin Time 1.2 Ratio INR International 1.15 Normalized Ratio Activated 40.5 H Partial Thromboplast Time Sodium Level 132 L Potassium Level 5.6 H Chloride Level 100 Carbon Dioxide Level 19 L Anion Gap 13 Blood Urea Nitrogen 44 H Creatinine 2.13 H Est Glomerular Filtrat Rate mL/min Glucose Level 203 Calcium Level 10.1 Total Bilirubin 0.3 Direct Bilirubin 0.00 Indirect Bilirubin 0.3 Aspartate Amino 70 H Transf (AST/SGOT) Alanine 68 Aminotransferase (AL T/SGPT) Alkaline Phosphatase 76 Troponin I 0.022 Total Protein 7.8 Albumin 4.1 Globulin 3.70 H Albumin/Globulin 1.10 Ratio Urine Color YELLOW Urine Clarity CLEAR Urine pH 5.0 Urine Specific 1.017 [place] Urine Ketones TRACE A Urine Nitrite NEGATIVE Urine Bilirubin NEGATIVE Urine Urobilinogen NEGATIVE Urine Leukocyte NEGATIVE Esterase Urine Hemoglobin NEGATIVE Urine Glucose 3+ H Urine Total Protein NEGATIVE Lactic Acid Level 0.8 Test 03/16/19 05:25 03/16/19 08:27 03/16/19 09:27 03/16/19 13:45 Lactic Acid Level 0.8 D-Dimer 2638.43 #H D-Dimer Comment Creatine Kinase 116 Creatine Kinase 1.7 Index Creatinine Kinase MB 1.99 (Mass) Troponin I 0.015 Bedside Glucose 227 H Test 03/16/19 15:29 03/16/19 17:07 Creatine Kinase 118 Creatine Kinase 1.5 Index Creatinine Kinase MB 1.79 (Mass) Troponin I 0.017 Bedside Glucose 337 H Medications Medication Current Medications Sodium Chloride 1,000 ml @ 100 mls/hr Q10H IV Last administered on 03/16/19at 10:19; Admin Dose 100 MLS/HR; Start 03/16/19 at 09:03 IV Flush (NS 3 ml) 3 ml PER PROTOCOL IV ; Start 03/16/19 at 09:30 Methylprednisolone Sodium Succinate (Solu-Medrol) 40 mg Q8 IV Last administered on 03/16/19at 13:48; Admin Dose 40 MG; Start 03/16/19 at 14:00 Acetaminophen/ Hydrocodone Bitart ([place] (5/325)) 1 tab Q6H PRN PO .PAIN 4-6 Last administered on 03/16/19at 12:40; Admin Dose 1 TAB; Start 03/16/19 at 09:30 Docusate Sodium (Colace) 100 mg Q12H PRN PO .CONSTIPATION; Start 03/16/19 at 09:30 Enoxaparin Sodium (Lovenox) 30 mg DAILY SC ; Start 03/17/19 at 09:00 Albuterol (Proventil 0.083% (Neb)) 2.5 mg Q4H RESP THERAPY NEB Last administered on 03/16/19at 13:10; Admin Dose 2.5 MG; Start 03/16/19 at 13:00 Ipratropium [place] (Atrovent 0.02% (Neb)) 0.5 mg Q4H RESP THERAPY NEB Last administered on 03/16/19at 13:10; Admin Dose 0.5 MG; Start 03/16/19 at 13:00 Ceftriaxone Sodium 50 ml @ 100 mls/hr Q24H IVPB Last administered on 03/16/19at 10:08; Admin Dose 100 MLS/HR; Start 03/16/19 at 10:30 Azithromycin 250 ml @ 250 mls/hr Q24H IV Last administered on 03/16/19at 11:02; Admin Dose 250 MLS/HR; Start 03/16/19 at 09:30 Aspirin (Halfprin) 81 mg DAILY PO Last administered on 03/16/19at 10:06; Admin Dose 81 MG; Start 03/16/19 at 09:30 Atorvastatin Calcium (Lipitor) 80 mg QHS PO ; Start 03/16/19 at 21:00 Gabapentin (Neurontin) 600 mg TID PO Last administered on 03/16/19at 13:48; Admin Dose 600 MG; Start 03/16/19 at 13:00 Metoprolol Succinate (Toprol Xl) 50 mg DAILY PO ; Start 03/17/19 at 09:00 Spironolactone (Aldactone) 50 mg DAILY PO ; Start 03/17/19 at 09:00 Insulin Glargine (Lantus) 30 units DAILY@2000 SC ; Start 03/16/19 at 20:00 Insulin Aspart (Novolog Insulin Pen) NOVOLOG *MODERATE* ALGORITHM WITH MEALS BEDTIME SC Last administered on 03/16/19at 17:09; Admin Dose 10 UNIT; Start 03/16/19 at 12:00 Miscellaneous Information 1 ea NOTE XX ; Start 03/16/19 at 11:00 Glucose (Glutose) 15 gm Q15M PRN PO DECREASED GLUCOSE; Start 03/16/19 at 11:00 Glucose (Glutose) 22.5 gm Q15M PRN PO DECREASED GLUCOSE; Start 03/16/19 at 11:00 Dextrose (D50w Syringe) 25 ml Q15M PRN IV DECREASED GLUCOSE; Start 03/16/19 at 11:00 Dextrose (D50w Syringe) 50 ml Q15M PRN IV DECREASED GLUCOSE; Start 03/16/19 at 11:00 Glucagon (Glucagen) 1 mg Q15M PRN IM DECREASED GLUCOSE; Start 03/16/19 at 11:00 Glucose (Glutose) 15 gm Q15M PRN BUCCAL DECREASED GLUCOSE; Start 03/16/19 at 11:00 Sodium Bicarbonate 50 meq/Sodium Chloride 1,050 ml @ 100 mls/hr [id number] IV Last administered on 03/16/19at 17:40; Admin Dose 100 MLS/HR; Start 03/16/19 at 15:00; Stop 03/17/19 at 01:29 SUELLEN MCKNIGHT MD Mar 16, 2019 18:38
[2019-03-16 19:49] VITALS: BP 143/70; PULSE 84; RESP 18
[2019-03-16] MEDS ORDERED: INSULIN GLARGINE [LANTus] (100 UNITS/ML) SYG SC SCH (20:00)
[2019-03-16] MEDS: ATORVASTATIN 80 MG TAB PO SCH (20:44)
[2019-03-16] MEDS ORDERED: INSULIN GLARGINE [LANTus] (100 UNITS/ML) SYG SC ONE (22:00)
[2019-03-17] MEDS: ALBUTEROL 0.083% (NEB) 2.5 MG/3 ML AMP NEB SCH ×6 (00:20→20:36)
[2019-03-17] MEDS: IPRATROPIUM (NEB) 0.5 MG/2.5 ML AMP NEB SCH ×6 (00:20→20:36)
[2019-03-17 02:56] VITALS: BP 126/60; PULSE 69; RESP 16
[2019-03-17] MEDS: SOD CHLORIDE 0.9% 1,000 ML IV SCH ×2 (05:03→15:35)
[2019-03-17] MEDS: METHYLPREDNISOLONE 125 MG INJ IV SCH ×3 (05:41→20:37)
[2019-03-17 07:57] VITALS: BP 142/65; PULSE 76; RESP 18
[2019-03-17] MEDS: INSULIN ASPART [NOVOLOG] 3 ML PEN SC SCH ×4 (08:52→20:51)
[2019-03-17] MEDS: ASPIRIN (EC) 81 MG TAB PO SCH (08:54)
[2019-03-17] MEDS: SPIRONOLACTONE 50 MG TAB PO SCH (08:54)
[2019-03-17] MEDS: METOPROLOL (XL) 50 MG TAB PO SCH (08:55)
[2019-03-17] MEDS: GABAPENTIN 300 MG CAP PO SCH ×3 (08:55→20:36)
[2019-03-17] MEDS: NICOTINE (21 MG/24 HR) PATCH TRANSDERM SCH (08:59)
[2019-03-17] MEDS: ENOXAPARIN 30 MG/0.3 ML SYG SC SCH (09:00)
[2019-03-17] MEDS: AZITHROMYCIN 500MG/NS (PMX) 250 ML IV SCH (09:38)
[2019-03-17] MEDS ORDERED: INSULIN GLARGINE [LANTus] (100 UNITS/ML) SYG SC ONE (10:30)
[2019-03-17] MEDS: FISH OIL 1,000 MG CAP PO SCH ×2 (10:55→20:36)
[2019-03-17] MEDS: CEFTRIAXONE 1 GM/50 ML (PMX) 50 ML IVPB SCH (10:55)
--- NOTE | 2019-03-17 11:56 | CONS ---
Assessment/Plan Assessment/Plan Assessment/Plan (Daily) Assessment and recommendations; 1. Patient admitted with dense right upper lobe consolidation due to committee acquired pneumonia. 2. Underlying CAD. Status post coronary intervention in October of this year. No recent hospitalizations after that. 3. History of diabetes and hypertension. 4. Current smoker. 5. Mild chronic renal insufficiency. 6. Peripheral neuropathy. Discontinue Rocephin. Start cefepime 1 g every 12 hours. Obtain follow-up chest x-ray in 48 hours. Continue Zithromax. Consultation Date/Type/Reason Admit Date/Time Date of Consultation: Mar 17, 2019 Type of Consult Pulmonary Patient is a pleasant 79-year-old gentleman who came into the hospital yesterday with a few weeks history of coughing and shortness of breath. Upon evaluation chest x-ray was done which is showing dense right upper lobe pneumonia. Patient has been started on antibiotics with some improvement in symptoms. He denies any fever, coughing, wheezing, sputum production or hemoptysis. By the time I saw him, patient is lying comfortably in bed on 2 L nasal cannula. Past medical history; 1. History of PTCA in October of this year at [facility]. 2. COPD. 3. Diabetes and hypertension. Medications; reviewed. Allergies; none. \ Social history; smokes about a pack a day. Family history; , has a supportive family. No show any illnesses in the family. 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 Review of systems; denies any headache, visual changes, sinus symptoms, seizures, dysphagia, sore throat. Shortness of breath has improved. Denies any coughing, wheezing, sputum production or hemoptysis. Any body aches or myalgias. Any fever or chills. Any abdominal pain, nausea vomiting. Any melena or hematochezia. Complains of very mild orthopnea. Complains of snoring and excessive daytime sleepiness. Complains of some weight gain. General exam; elderly male, awake alert, currently no distress. Date/Time of Note DATE: 03/17/19 TIME: 11:50 Past Medical History Home Meds Active Scripts Doxycycline Monohydrate* (Doxycycline Monohydrate*) 100 Mg Tablet, 100 MG PO BID for 7 Days, TAB for Bronchitis Prov:SCOTT QUEZADA 08/20/16 Nystatin (Nystatin Powder) 1 Each Powder.ea., 1 APPLIC TOPICAL BID for 7 Days, #1 BOTTLE to affected area, perineal area Prov:SCOTT QUEZADA 08/20/16 Aspirin* (Aspirin* EC) 81 Mg Tablet.dr, 81 MG PO DAILY for 30 Days, 3 Refills Prov:SCOTT QUEZADA 08/20/16 Ipratropium-Albuterol (Ipratropium-Albuterol) 0.5-3 Mg/3 Ml Ampul.neb, 3 ML HHN Q8 for 30 Days, 3 Refills Prov:SCOTT QUEZADA 08/20/16 Levalbuterol Hcl* (Xopenex*) 1.25 Mg/0.5 Ml Vial.neb, 1.25 MG HHN Q6H RESP THERAPY PRN for wheeze/sob, #90 3 Refills Prov:SCOTT QUEZADA 08/20/16 Fluconazole* (Fluconazole*) 100 Mg Tablet, 100 MG PO DAILY for 7 Days, TAB Prov:SCOTT QUEZADA 08/20/16 Nateglinide* (Nateglinide*) 120 Mg Tablet, 120 MG PO AC MEALS for 30 Days, TAB 3 Refills Prov:SCOTT QUEZADA 08/20/16 Reported Medications Amlodipine Besylate/Benazepril (Amlodipine-Benazepril 5-10 mg) 1 Each Capsule, 1 TAB PO DAILY for 30 Days, #30 03/16/19 Insulin Glargine* (Lantus*) 100 Unit/Ml Soln, 40 UNIT SC QHS, #1 VIAL 03/16/19 Liraglutide (Victoza 2-Bong) 0.6 Mg/0.1 Ml Pen.injctr, 0.6 MG SQ QAM, SYR 03/16/19 Insulin Lispro (Humalog Kwikpen U-100) 100 Unit/1 Ml Insuln.pen, 18 UNIT SQ AC LUNCH AND DINNER, EA 03/16/19 Insulin Lispro (Humalog Kwikpen U-100) 100 Unit/1 Ml Insuln.pen, 9 UNIT SQ AC BREAKFAST, EA 03/16/19 Caldwell-3 Acid Ethyl Esters ([place]dwell-3 Acid Ethyl Esters) 1 Gm Capsule, 1 GM PO BID for 30 Days 03/16/19 Spironolactone* (Aldactone*) 50 Mg Tablet, 50 MG PO DAILY for 30 Days, #30 03/16/19 Bumetanide* (Bumetanide*) 1 Mg Tablet, 1 MG PO BID for 30 Days, #30 03/16/19 Dapagliflozin Propanediol (Farxiga) 10 Mg Tablet, 10 MG PO QPM for 30 Days, #30 03/16/19 Atorvastatin* (Atorvastatin*) 80 Mg Tablet, 80 MG PO QHS, #30 TAB 03/16/19 Metoprolol Succinate* (Toprol XL*) 50 Mg Tab.er.24h, 50 MG PO DAILY, #30 TAB 08/18/16 Fenofibrate, Micronized (Fenofibrate) 134 Mg Capsule, 134 MG PO DAILY, CAP 08/18/16 Liraglutide (Victoza 3-Bong) 0.6 Mg/0.1 Ml Pen.injctr, 1.8 MG SQ DAILY, SYR 08/18/16 Levalbuterol* (Xopenex* HFA) 15 Gm Inha, 1 PUFFS INH Q8H PRN for WHEEZING AND SOB, INHALER 08/18/16 Beclomethasone Dip* (Qvar 40*) 7.3 Gm Inha, 1 PUFF INH BID, #1 INHALER 08/18/16 Ergocalciferol (Vitamin D2) (VITAMIN D2) 50,000 Unit Capsule, 18464 UNIT PO Q7D for QSATUR, CAP 08/18/16 Metformin Hcl* (Metformin Hcl*) 1,000 Mg Tablet, 1000 MG PO WITH BREAKFAST DINNE, #60 TAB 08/18/16 Famotidine* (Famotidine*) 20 Mg Tablet, 20 MG PO BID, #60 TAB 08/18/16 Hydrocodone/Acetaminophen (Lorcet Hd 10-325 mg Tablet) 1 Each Tablet, 1 EACH PO QID, TAB 08/18/16 Gabapentin* (Gabapentin*) 300 Mg Capsule, 600 MG PO TID, #90 CAP 08/18/16 Discontinued Reported Medications Atorvastatin Calcium* (Atorvastatin Calcium*) 20 Mg Tablet, 20 MG PO QHS, #30 TAB 08/18/16 Medications Current Medications Sodium Chloride 1,000 ml @ 100 mls/hr Q10H IV Last administered on 03/16/19at 10:19; Admin Dose 100 MLS/HR; Start 03/16/19 at 09:03 IV Flush (NS 3 ml) 3 ml PER PROTOCOL IV ; Start 03/16/19 at 09:30 Methylprednisolone Sodium Succinate (Solu-Medrol) 40 mg Q8 IV Last administered on 03/17/19 05:41; Admin Dose 40 MG; Start 03/16/19 at 14:00 Acetaminophen/ Hydrocodone Bitart ([place] (5/325)) 1 tab Q6H PRN PO .PAIN 4-6 Last administered on 03/16/19 20:44; Admin Dose 1 TAB; Start 03/16/19 at 09:30 Docusate Sodium (Colace) 100 mg Q12H PRN PO .CONSTIPATION; Start 03/16/19 at 09:30 Enoxaparin Sodium (Lovenox) 30 mg DAILY SC Last administered on 03/17/19 09:00; Admin Dose 30 MG; Start 03/17/19 at 09:00 Albuterol (Proventil 0.083% (Neb)) 2.5 mg Q4H RESP THERAPY NEB Last administered on 03/17/19 10:11; Admin Dose 2.5 MG; Start 03/16/19 at 13:00 Ipratropium [place] (Atrovent 0.02% (Neb)) 0.5 mg Q4H RESP THERAPY NEB Last administered on 03/17/19 10:11; Admin Dose 0.5 MG; Start 03/16/19 at 13:00 Azithromycin 250 ml @ 250 mls/hr Q24H IV Last administered on 03/17/19 09:38; Admin Dose 250 MLS/HR; Start 03/16/19 at 09:30 Aspirin (Halfprin) 81 mg DAILY PO Last administered on 03/17/19 08:54; Admin Dose 81 MG; Start 03/16/19 at 09:30 Atorvastatin Calcium (Lipitor) 80 mg QHS PO Last administered on 03/16/19 20:44; Admin Dose 80 MG; Start 03/16/19 at 21:00 Gabapentin (Neurontin) 600 mg TID PO Last administered on 03/17/19 08:55; Admin Dose 600 MG; Start 03/16/19 at 13:00 Metoprolol Succinate (Toprol Xl) 50 mg DAILY PO Last administered on 6/13/19at 08:55; Admin Dose 50 MG; Start 03/17/19 at 09:00 Spironolactone (Aldactone) 50 mg DAILY PO Last administered on 03/17/19at 08:54; Admin Dose 50 MG; Start 03/17/19 at 09:00 Insulin Aspart (Novolog Insulin Pen) NOVOLOG *MODERATE* ALGORITHM WITH MEALS BEDTIME SC Last administered on 03/17/19at 08:52; Admin Dose 10 UNIT; Start 03/16/19 at 12:00 Miscellaneous Information 1 ea NOTE XX ; Start 03/16/19 at 11:00 Glucose (Glutose) 15 gm Q15M PRN PO DECREASED GLUCOSE; Start 03/16/19 at 11:00 Glucose (Glutose) 22.5 gm Q15M PRN PO DECREASED GLUCOSE; Start 03/16/19 at 11:00 Dextrose (D50w Syringe) 25 ml Q15M PRN IV DECREASED GLUCOSE; Start 03/16/19 at 11:00 Dextrose (D50w Syringe) 50 ml Q15M PRN IV DECREASED GLUCOSE; Start 03/16/19 at 11:00 Glucagon (Glucagen) 1 mg Q15M PRN IM DECREASED GLUCOSE; Start 03/16/19 at 11:00 Glucose (Glutose) 15 gm Q15M PRN BUCCAL DECREASED GLUCOSE; Start 03/16/19 at 11:00 Nicotine (Nicoderm 21 Mg/ 24hr) 1 patch DAILY TRANSDERM Last administered on 03/17/19at 08:59; Admin Dose 1 PATCH; Start 03/17/19 at 09:00 Insulin Glargine (Lantus) 25 units BID SC ; Start 03/17/19 at 21:00 Fish Oil (Fish Oil) 1,000 mg BID PO Last administered on 03/17/19at 10:55; Admin Dose 1,000 MG; Start 03/17/19 at 10:30 Allergies: Coded Allergies: No Known Allergy (Unverified , 03/16/19) Past Surgical History Past Surgical Hx: angioplasty Social History Smoking Status: Current every day smoker Exam/Review of Systems Exam Vitals Vital Signs Date Temp Pulse Resp B/P (MAP) Pulse Ox O2 O2 Flow FiO2 Time Delivery Rate 03/17/19 88 20 94 Nasal 2.0 10:14 Cannula 03/17/19 97.8 142/65 07:57 (90) Intake and Output 03/16/19 03/16/19 03/17/19 1515:00 23:00 07:00 IntakeIntake Total 930 ml 950 ml BalanceBalance 930 ml 950 ml Exam H EENT exam; supple neck, no JVD. No lymphadenopathy. Midline trachea. No thyromegaly. No neck masses. Patient is edentulous. Pupils are small bilaterally. Chest exam; diminished breath sounds bilaterally. No added sounds. S1-S2 audible, no murmurs. Regular rhythm. Abdomen exam; soft, protuberant. No organomegaly. Bowel sounds audible. Extremity exam; no peripheral edema clubbing. [employer] exam; no focal deficit. Results Result Diagram: 03/17/19 0745 03/17/19 0745 Results 24hrs Laboratory Tests Test 03/16/19 13:45 03/16/19 15:29 03/16/19 17:07 03/16/19 20:40 Bedside Glucose 227 H 337 H 396 H Creatine Kinase 118 Creatine Kinase 1.5 Index Creatinine Kinase MB 1.79 (Mass) Troponin I 0.017 Test 03/16/19 20:43 03/16/19 22:55 03/17/19 02:33 03/17/19 07:45 Bedside Glucose 406 *H 388 H 316 H White Blood Count 6.3 # Red Blood Count 4.04 L Hemoglobin 10.9 L Hematocrit 34.6 L Mean Corpuscular 85.6 Volume Mean Corpuscular 27.0 L Hemoglobin Mean Corpuscular 31.5 L Hemoglobin Concent Red Cell 15.2 H Distribution Width Platelet Count 290 Mean Platelet Volume 10.2 Immature 2.400 H Granulocytes % Neutrophils % 76.0 Lymphocytes % 15.8 Monocytes % 5.3 Eosinophils % 0.0 Basophils % 0.5 Nucleated Red Blood 0.0 Cells % Immature 0.150 H Granulocytes # Neutrophils # 4.8 Lymphocytes # 1.0 Monocytes # 0.3 Eosinophils # 0.0 Basophils # 0.0 Nucleated Red Blood 0.0 Cells # Sodium Level 138 Potassium Level 5.2 H Chloride Level 102 Carbon Dioxide Level 23 Anion Gap 13 Blood Urea Nitrogen 39 H Creatinine 1.27 H Est Glomerular Filtrat Rate mL/min Glucose Level 351 H Hemoglobin A1c 8.2 H Calcium Level 9.9 Magnesium Level 2.5 Total Bilirubin 0.3 Direct Bilirubin 0.00 Indirect Bilirubin 0.3 Aspartate Amino 89 H Transf (AST/SGOT) Alanine 82 H Aminotransferase (AL T/SGPT) Alkaline Phosphatase 72 Total Protein 7.6 Albumin 4.0 Globulin 3.60 H Albumin/Globulin 1.11 Ratio Triglycerides Level 456 H Cholesterol Level 144 LDL Cholesterol, 40 Calculated HDL Cholesterol 13 L Cholesterol/HDL 11.0 Ratio Test 03/17/19 08:34 03/17/19 11:38 Bedside Glucose 340 H 389 H Medications Medication Current Medications Sodium Chloride 1,000 ml @ 100 mls/hr Q10H IV Last administered on 03/16/19 10:19; Admin Dose 100 MLS/HR; Start 03/16/19 at 09:03 IV Flush (NS 3 ml) 3 ml PER PROTOCOL IV ; Start 03/16/19 at 09:30 Methylprednisolone Sodium Succinate (Solu-Medrol) 40 mg Q8 IV Last administered on 03/17/19 05:41; Admin Dose 40 MG; Start 03/16/19 at 14:00 Acetaminophen/ Hydrocodone Bitart ([place] (5/325)) 1 tab Q6H PRN PO .PAIN 4-6 Last administered on 03/16/19 20:44; Admin Dose 1 TAB; Start 03/16/19 at 09:30 Docusate Sodium (Colace) 100 mg Q12H PRN PO .CONSTIPATION; Start 03/16/19 at 09:30 Enoxaparin Sodium (Lovenox) 30 mg DAILY SC Last administered on 03/17/19 09:00; Admin Dose 30 MG; Start 03/17/19 at 09:00 Albuterol (Proventil 0.083% (Neb)) 2.5 mg Q4H RESP THERAPY NEB Last administered on 03/17/19 10:11; Admin Dose 2.5 MG; Start 03/16/19 at 13:00 Ipratropium [place] (Atrovent 0.02% (Neb)) 0.5 mg Q4H RESP THERAPY NEB Last administered on 03/17/19 10:11; Admin Dose 0.5 MG; Start 03/16/19 at 13:00 Azithromycin 250 ml @ 250 mls/hr Q24H IV Last administered on 03/17/19 09:38; Admin Dose 250 MLS/HR; Start 03/16/19 at 09:30 Aspirin (Halfprin) 81 mg DAILY PO Last administered on 03/17/19 08:54; Admin Dose 81 MG; Start 03/16/19 at 09:30 Atorvastatin Calcium (Lipitor) 80 mg QHS PO Last administered on 03/16/19at 20:44; Admin Dose 80 MG; Start 03/16/19 at 21:00 Gabapentin (Neurontin) 600 mg TID PO Last administered on 03/17/19 08:55; Admi n Dose 600 MG; Start 03/16/19 at 13:00 Metoprolol Succinate (Toprol Xl) 50 mg DAILY PO Last administered on 03/17/19 08:55; Admin Dose 50 MG; Start 03/17/19 at 09:00 Spironolactone (Aldactone) 50 mg DAILY PO Last administered on 03/17/19 08:54; Admin Dose 50 MG; Start 03/17/19 at 09:00 Insulin Aspart (Novolog Insulin Pen) NOVOLOG *MODERATE* ALGORITHM WITH MEALS BEDTIME SC Last administered on 03/17/19 08:52; Admin Dose 10 UNIT; Start 03/16/19 at 12:00 Miscellaneous Information 1 ea NOTE XX ; Start 03/16/19 at 11:00 Glucose (Glutose) 15 gm Q15M PRN PO DECREASED GLUCOSE; Start 03/16/19 at 11:00 Glucose (Glutose) 22.5 gm Q15M PRN PO DECREASED GLUCOSE; Start 03/16/19 at 11:00 Dextrose (D50w Syringe) 25 ml Q15M PRN IV DECREASED GLUCOSE; Start 03/16/19 at 11:00 Dextrose (D50w Syringe) 50 ml Q15M PRN IV DECREASED GLUCOSE; Start 03/16/19 at 11:00 Glucagon (Glucagen) 1 mg Q15M PRN IM DECREASED GLUCOSE; Start 03/16/19 at 11:00 Glucose (Glutose) 15 gm Q15M PRN BUCCAL DECREASED GLUCOSE; Start 03/16/19 at 11:00 Nicotine (Nicoderm 21 Mg/ 24hr) 1 patch DAILY TRANSDERM Last administered on 03/17/19at 08:59; Admin Dose 1 PATCH; Start 03/17/19 at 09:00 Insulin Glargine (Lantus) 25 units BID SC ; Start 03/17/19 at 21:00 Fish Oil (Fish Oil) 1,000 mg BID PO Last administered on 6/13/19at 10:55; Admin Dose 1,000 MG; Start 03/17/19 at 10:30 KANU CURRAN Mar 17, 2019 11:56
[2019-03-17] MEDS: CEFEPIME 1GM/50 ML (PMX) 50 ML IVPB SCH ×2 (12:49→20:38)
[2019-03-17 14:28] VITALS: BP 122/64; PULSE 76; RESP 18
--- NOTE | 2019-03-17 20:15 | PN ---
Date/Time of Note Date/Time of Note DATE: 03/17/19 TIME: 20:11 Assessment/Plan VTE Prophylaxis Risk score (from Ns)>0 risk: 4 SCD applied (from Ns): No SCD contraindicated: other Pharmacological prophylaxis: LMWH Lines/Catheters IV Catheter Type (from Nrs): Peripheral IV Urinary Cath still in place: No Assessment/Plan Hospital Course 79 years old male with history of heavy smoking, COPD presenting with shortness of breath in the setting of COPD exacerbation and multilobar pneumonia. Also acute renal failure and hyperkalemia noted #Multilobar lung infiltrate #CAP (community acquired pneumonia) #COPD exacerbation #SOB (shortness of breath) -IV Cefepime and azithromycin for community-acquired pneumonia, ID consulted -Pulm on board -IV Solu-Medrol 40 every 12 hours and DuoNeb for COPD exacerbation #Right Pleuritic chest pain due to pneumonia D-dimer elevated. Cannot do CT angiogram given NILTON VQ scan was low prob for out pulmonary embolism # NILTON (acute kidney injury), prerenal azotemia, improving #Hyperkalemia, improving -IV bicarbonate drip for NILTON and hyperkalemia -Monitor creatinine -Avoid nephrotoxic agents, no dose medications - DC Benazepril #CAD S/P percutaneous coronary angioplasty Recent LHC at [facility] with unremarkable results -continue aspirin, statin, beta-romana - Serial troponin unremarkable # Heavy smoker Counselled extensively - Nicotine patch # Diabetes mellitus with insulin therapy uncontrolled - A1C 8.2 - Holding oral agents while inpatient - Lantus 25 BID and sliding scale - ADA diet #HTN -continue Norvasc and metoprolol -Avoid FABIAN inhibitor ARB given NILTON and hyperkalemia #PPX: Lovenox and Pepcid Result Diagram: 03/17/19 0745 03/17/19 0745 Results 24hrs Laboratory Tests Test 03/16/19 20:40 03/16/19 20:43 03/16/19 22:55 03/17/19 02:33 Bedside Glucose 396 H 406 *H 388 H 316 H Test 03/17/19 07:45 03/17/19 08:34 03/17/19 11:38 03/17/19 12:47 White Blood Count 6.3 # Red Blood Count 4.04 L Hemoglobin 10.9 L Hematocrit 34.6 L Mean Corpuscular 85.6 Volume Mean Corpuscular 27.0 L Hemoglobin Mean Corpuscular 31.5 L Hemoglobin Concent Red Cell 15.2 H Distribution Width Platelet Count 290 Mean Platelet Volume 10.2 Immature 2.400 H Granulocytes % Neutrophils % 76.0 Lymphocytes % 15.8 Monocytes % 5.3 Eosinophils % 0.0 Basophils % 0.5 Nucleated Red Blood 0.0 Cells % Immature 0.150 H Granulocytes # Neutrophils # 4.8 Lymphocytes # 1.0 Monocytes # 0.3 Eosinophils # 0.0 Basophils # 0.0 Nucleated Red Blood 0.0 Cells # Sodium Level 138 Potassium Level 5.2 H Chloride Level 102 Carbon Dioxide Level 23 Anion Gap 13 Blood Urea Nitrogen 39 H Creatinine 1.27 H Est Glomerular Filtrat Rate mL/min Glucose Level 351 H Hemoglobin A1c 8.2 H Calcium Level 9.9 Magnesium Level 2.5 Total Bilirubin 0.3 Direct Bilirubin 0.00 Indirect Bilirubin 0.3 Aspartate Amino 89 H Transf (AST/SGOT) Alanine 82 H Aminotransferase (AL T/SGPT) Alkaline Phosphatase 72 Total Protein 7.6 Albumin 4.0 Globulin 3.60 H Albumin/Globulin 1.11 Ratio Triglycerides Level 456 H Cholesterol Level 144 LDL Cholesterol, 40 Calculated HDL Cholesterol 13 L Cholesterol/HDL 11.0 Ratio Bedside Glucose 340 H 389 H 360 H Test 03/17/19 17:15 Bedside Glucose 395 H Exam/Review of Systems Exam Vitals Vital Signs Date Temp Pulse Resp B/P (MAP) Pulse Ox O2 O2 Flow FiO2 Time Delivery Rate 03/17/19 79 20 95 Nasal 2.0 17:20 Cannula 03/17/19 98.0 122/64 14:28 (83) Intake and Output 03/16/19 03/16/19 03/17/19 1515:00 23:00 07:00 IntakeIntake Total 930 ml 950 ml BalanceBalance 930 ml 950 ml Exam Gen.: In no acute distress, pleasant and cooperative Eyes: Anicteric, conjunctiva normal, PERRLA, EOM intact HEENT: Normocephalic, atraumatic, hearing grossly intact, oral mucosa dry no oral lesions Neck: Supple, no masses, trachea midline Cardiovascular: Regular rate and rhythm, no peripheral edema, no murmurs, no gallops, no rubs Respiratory: no use of accessory muscles of respiration, bilateral inspiratory wheezes, expiration mildly prolonged Extremities: No cyanosis, no edema, no calf tenderness, pulses bilaterally palpable, extremities warm and perfused Abdomen: Soft, not distended, nontender, bowel sounds present, no guarding, no rebound Neurological: Alert and oriented x3, speech normal, CN 2-12 no deficit, no motor or sensory deficit, coordination normal : No Aguilar catheter Heme: No acute bleeding, no ecchymosis or petechia Psych: No anxiety depression, mood and affect appropriate Results Results 24hrs Laboratory Tests Test 03/16/19 20:40 03/16/19 20:43 03/16/19 22:55 03/17/19 02:33 Bedside Glucose 396 H 406 *H 388 H 316 H Test 03/17/19 07:45 03/17/19 08:34 03/17/19 11:38 03/17/19 12:47 White Blood Count 6.3 # Red Blood Count 4.04 L Hemoglobin 10.9 L Hematocrit 34.6 L Mean Corpuscular 85.6 Volume Mean Corpuscular 27.0 L Hemoglobin Mean Corpuscular 31.5 L Hemoglobin Concent Red Cell 15.2 H Distribution Width Platelet Count 290 Mean Platelet Volume 10.2 Immature 2.400 H Granulocytes % Neutrophils % 76.0 Lymphocytes % 15.8 Monocytes % 5.3 Eosinophils % 0.0 Basophils % 0.5 Nucleated Red Blood 0.0 Cells % Immature 0.150 H Granulocytes # Neutrophils # 4.8 Lymphocytes # 1.0 Monocytes # 0.3 Eosinophils # 0.0 Basophils # 0.0 Nucleated Red Blood 0.0 Cells # Sodium Level 138 Potassium Level 5.2 H Chloride Level 102 Carbon Dioxide Level 23 Anion Gap 13 Blood Urea Nitrogen 39 H Creatinine 1.27 H Est Glomerular Filtrat Rate mL/min Glucose Level 351 H Hemoglobin A1c 8.2 H Calcium Level 9.9 Magnesium Level 2.5 Total Bilirubin 0.3 Direct Bilirubin 0.00 Indirect Bilirubin 0.3 Aspartate Amino 89 H Transf (AST/SGOT) Alanine 82 H Aminotransferase (AL T/SGPT) Alkaline Phosphatase 72 Total Protein 7.6 Albumin 4.0 Globulin 3.60 H Albumin/Globulin 1.11 Ratio Triglycerides Level 456 H Cholesterol Level 144 LDL Cholesterol, 40 Calculated HDL Cholesterol 13 L Cholesterol/HDL 11.0 Ratio Bedside Glucose 340 H 389 H 360 H Test 03/17/19 17:15 Bedside Glucose 395 H Medications Medication Current Medications Sodium Chloride 1,000 ml @ 100 mls/hr Q10H IV Last administered on 03/17/19 15:35; Admin Dose 100 MLS/HR; Start 03/16/19 at 09:03 IV Flush (NS 3 ml) 3 ml PER PROTOCOL IV ; Start 03/16/19 at 09:30 Acetaminophen/ Hydrocodone Bitart ([place] (5/325)) 1 tab Q6H PRN PO .PAIN 4-6 Last administered on 03/16/19 20:44; Admin Dose 1 TAB; Start 03/16/19 at 09:30 Docusate Sodium (Colace) 100 mg Q12H PRN PO .CONSTIPATION; Start 03/16/19 at 09:30 Enoxaparin Sodium (Lovenox) 30 mg DAILY SC Last administered on 03/17/19 09:0 0; Admin Dose 30 MG; Start 03/17/19 at 09:00 Albuterol (Proventil 0.083% (Neb)) 2.5 mg Q4H RESP THERAPY NEB Last administered on 03/17/19 17:17; Admin Dose 2.5 MG; Start 03/16/19 at 13:00 Ipratropium [place] (Atrovent 0.02% (Neb)) 0.5 mg Q4H RESP THERAPY NEB Last administered on 03/17/19 17:17; Admin Dose 0.5 MG; Start 03/16/19 at 13:00 Azithromycin 250 ml @ 250 mls/hr Q24H IV Last administered on 03/17/19 09:38; Admin Dose 250 MLS/HR; Start 03/16/19 at 09:30 Aspirin (Halfprin) 81 mg DAILY PO Last administered on 03/17/19 08:54; Admin Dose 81 MG; Start 03/16/19 at 09:30 Atorvastatin Calcium (Lipitor) 80 mg QHS PO Last administered on 03/16/19 20:44; Admin Dose 80 MG; Start 03/16/19 at 21:00 Gabapentin (Neurontin) 600 mg TID PO Last administered on 03/17/19 12:54; Admin Dose 600 MG; Start 03/16/19 at 13:00 Metoprolol Succinate (Toprol Xl) 50 mg DAILY PO Last administered on 03/17/19 08:55; Admin Dose 50 MG; Start 03/17/19 at 09:00 Spironolactone (Aldactone) 50 mg DAILY PO Last administered on 03/17/19at 08:54; Admin Dose 50 MG; Start 03/17/19 at 09:00 Insulin Aspart (Novolog Insulin Pen) NOVOLOG *MODERATE* ALGORITHM WITH MEALS BEDTIME SC Last administered on 03/17/19 17:18; Admin Dose 10 UNIT; Start 03/16/19 at 12:00 Miscellaneous Information 1 ea NOTE XX ; Start 03/16/19 at 11:00 Glucose (Glutose) 15 gm Q15M PRN PO DECREASED GLUCOSE; Start 03/16/19 at 11:00 Glucose (Glutose) 22.5 gm Q15M PRN PO DECREASED GLUCOSE; Start 03/16/19 at 11:00 Dextrose (D50w Syringe) 25 ml Q15M PRN IV DECREASED GLUCOSE; Start 03/16/19 at 11:00 Dextrose (D50w Syringe) 50 ml Q15M PRN IV DECREASED GLUCOSE; Start 03/16/19 at 11:00 Glucagon (Glucagen) 1 mg Q15M PRN IM DECREASED GLUCOSE; Start 03/16/19 at 11:00 Glucose (Glutose) 15 gm Q15M PRN BUCCAL DECREASED GLUCOSE; Start 03/16/19 at 11:00 Nicotine (Nicoderm 21 Mg/ 24hr) 1 patch DAILY TRANSDERM Last administered on at 08:59; Admin Dose 1 PATCH; Start 03/17/19 at 09:00 Fish Oil (Fish Oil) 1,000 mg BID PO Last administered on 03/17/19at 10:55; Admin Dose 1,000 MG; Start 03/17/19 at 10:30 Cefepime HCl 50 ml @ 100 mls/hr Q12 IVPB Last administered on 03/17/19at 12:49; Admin Dose 100 MLS/HR; Start 03/17/19 at 12:30 Methylprednisolone Sodium Succinate (Solu-Medrol) 40 mg Q12 IV ; Start 03/17/19 at 21:00 Insulin Glargine (Lantus) 35 units BID SC ; Start 03/17/19 at 21:00 GEOVANY OGDEN MD Mar 17, 2019 20:15
[2019-03-17] MEDS: ATORVASTATIN 80 MG TAB PO SCH (20:36)
[2019-03-17] MEDS: HYDROCODONE/APAP (5/325) TAB PO PRN (20:37)
[2019-03-17] MEDS: INSULIN GLARGINE [LANTus] (100 UNITS/ML) SYG SC SCH (20:49)
[2019-03-17 20:50] VITALS: BP 140/63; PULSE 74; RESP 18
[2019-03-17] MEDS ORDERED: INSULIN GLARGINE [LANTus] (100 UNITS/ML) SYG SC SCH (21:00)
[2019-03-18] MEDS: ALBUTEROL 0.083% (NEB) 2.5 MG/3 ML AMP NEB SCH ×6 (00:19→22:05)
[2019-03-18] MEDS: IPRATROPIUM (NEB) 0.5 MG/2.5 ML AMP NEB SCH ×6 (00:19→22:05)
[2019-03-18] MEDS: SOD CHLORIDE 0.9% 1,000 ML IV SCH ×3 (00:48→14:25)
[2019-03-18] MEDS ORDERED: ZOLPIDEM 5 MG TAB PO PRN (01:00)
[2019-03-18] MEDS ORDERED: ACETAMINOPHEN 500 MG TAB PO PRN (01:00)
[2019-03-18 02:29] VITALS: BP 123/66; PULSE 61; RESP 18
[2019-03-18 07:52] VITALS: BP 129/70; PULSE 59; RESP 18
[2019-03-18] MEDS: INSULIN GLARGINE [LANTus] (100 UNITS/ML) SYG SC SCH ×2 (08:32→20:36)
[2019-03-18] MEDS: INSULIN ASPART [NOVOLOG] 3 ML PEN SC SCH ×4 (08:32→21:29)
[2019-03-18] MEDS: SPIRONOLACTONE 50 MG TAB PO SCH (08:34)
[2019-03-18] MEDS: GABAPENTIN 300 MG CAP PO SCH ×3 (08:34→20:34)
[2019-03-18] MEDS: FISH OIL 1,000 MG CAP PO SCH ×2 (08:35→20:34)
[2019-03-18] MEDS: ASPIRIN (EC) 81 MG TAB PO SCH (08:35)
[2019-03-18] MEDS: METOPROLOL (XL) 50 MG TAB PO SCH (08:36)
[2019-03-18] MEDS: NICOTINE (21 MG/24 HR) PATCH TRANSDERM SCH (08:37)
[2019-03-18] MEDS: CEFEPIME 1GM/50 ML (PMX) 50 ML IVPB SCH ×2 (08:38→20:35)
[2019-03-18] MEDS: ENOXAPARIN 30 MG/0.3 ML SYG SC SCH (08:47)
[2019-03-18] MEDS: METHYLPREDNISOLONE 125 MG INJ IV SCH (08:48)
[2019-03-18] MEDS: AZITHROMYCIN 500MG/NS (PMX) 250 ML IV SCH (09:59)
--- NOTE | 2019-03-18 12:36 | CONS ---
Consultation Date/Type/Reason Admit Date/Time Mar 16, 2019 at 01:56 Initial Consult Date 03/17/19 Type of Consult Pulmonary Patient is a pleasant 79-year-old gentleman who came into the hospital yesterday with a few weeks history of coughing and shortness of breath. Upon evaluation chest x-ray was done which is showing dense right upper lobe pneumonia. Patient has been started on antibiotics with some improvement in symptoms. He denies any fever, coughing, wheezing, sputum production or hemoptysis. By the time I saw him, patient is lying comfortably in bed on 2 L nasal cannula. Past medical history; 1. History of PTCA in October of this year at [facility]. 2. COPD. 3. Diabetes and hypertension. Medications; reviewed. Allergies; none. \ Social history; smokes about a pack a day. Family history; , has a supportive family. No show any illnesses in the family. 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 Review of systems; denies any headache, visual changes, sinus symptoms, seizures, dysphagia, sore throat. Shortness of breath has improved. Denies any coughing, wheezing, sputum production or hemoptysis. Any body aches or myalgias. Any fever or chills. Any abdominal pain, nausea vomiting. Any melena or hematochezia. Complains of very mild orthopnea. Complains of snoring and excessive daytime sleepiness. Complains of some weight gain. General exam; elderly male, awake alert, currently no distress. Requesting Provider: GEOVANY OGDEN MD Date/Time of Note DATE: 03/18/19 TIME: 12:35 24 HR Interval Summary Free Text/Dictation Patient's condition is stable. Denies any coughing, wheezing, sputum production hemoptysis or fever. General exam; elderly male, awake alert, currently in no distress. H ENT exam; supple neck, no JVD. No lymphadenopathy. Midline trachea. No thyromegaly. No neck masses. Chest exam; clear to auscultation. S1-S2 audible, no murmurs. Regular rhythm. Abdomen exam; soft, protuberant. Nontender. Bowel sounds audible. Extremity exam; trace edema. No clubbing. [employer]IN[employer] OPER[employer] exam; no focal deficit. Assessment and recommendations; 1. Patient admitted with dense right upper lobe community acquired pneumonia clinically improved on current antimicrobial regimen. 2. CAD. 3. Diabetes and hypertension. 4. Chronic renal insufficiency. 5. Likely underlying sleep apnea. 6. COPD. Continue current supportive care. Will obtain follow-up chest x-ray tomorrow morning. If there is improvement in chest x-ray would recommend discharging the patient home on either enteral or parenteral antibiotic regimen depending upon chest x-ray findings. Exam/Review of Systems Exam Vitals Vital Signs Date Temp Pulse Resp B/P (MAP) Pulse Ox O2 O2 Flow FiO2 Time Delivery Rate 03/18/19 80 18 94 Nasal 2.0 09:54 Cannula 03/18/19 97.7 129/70 07:52 (89) Intake and Output 03/17/19 03/17/19 03/18/19 1515:00 23:00 07:00 IntakeIntake Total 1110 ml 1110 ml 1323 ml BalanceBalance 1110 ml 1110 ml 1323 ml Results Result Diagram: 03/18/19 0657 03/18/19 0657 Results 24hrs Laboratory Tests Test 03/17/19 12:47 03/17/19 17:15 03/17/19 20:43 03/18/19 00:47 Bedside Glucose 360 H 395 H 394 H 387 H Test 03/18/19 06:57 03/18/19 08:01 White Blood Count 6.6 Red Blood Count 3.90 L Hemoglobin 10.3 L Hematocrit 33.1 L Mean Corpuscular 84.9 Volume Mean Corpuscular 26.4 L Hemoglobin Mean Corpuscular 31.1 L Hemoglobin Concent Red Cell 15.5 H Distribution Width Platelet Count 298 Mean Platelet Volume 10.6 H Immature 2.700 H Granulocytes % Neutrophils % 75.0 Lymphocytes % 14.2 L Monocytes % 8.1 Eosinophils % 0.0 Basophils % 0.0 Nucleated Red Blood 0.0 Cells % Immature 0.180 H Granulocytes # Neutrophils # 5.0 Lymphocytes # 0.9 Monocytes # 0.5 Eosinophils # 0.0 Basophils # 0.0 Nucleated Red Blood 0.0 Cells # Sodium Level 137 Potassium Level 4.9 Chloride Level 104 Carbon Dioxide Level 21 Anion Gap 12 Blood Urea Nitrogen 47 H Creatinine 1.23 Est Glomerular Filtrat Rate mL/min Glucose Level 401 *H Calcium Level 9.2 Phosphorus Level 4.3 Magnesium Level 2.4 Total Bilirubin 0.2 Direct Bilirubin 0.00 Indirect Bilirubin 0.2 Aspartate Amino 170 #H Transf (AST/SGOT) Alanine 184 H Aminotransferase (AL T/SGPT) Alkaline Phosphatase 72 Total Protein 6.8 Albumin 3.7 Globulin 3.10 Albumin/Globulin 1.19 Ratio Bedside Glucose 392 H Medications Medication Current Medications Sodium Chloride 1,000 ml @ 100 mls/hr Q10H IV Last administered on 03/18/19 00:48; Admin Dose 100 MLS/HR; Start 03/16/19 at 09:03 IV Flush (NS 3 ml) 3 ml PER PROTOCOL IV ; Start 03/16/19 at 09:30 Docusate Sodium (Colace) 100 mg Q12H PRN PO .CONSTIPATION; Start 03/16/19 at 09:30 Enoxaparin Sodium (Lovenox) 30 mg DAILY SC Last administered on 03/18/19 08:47; Admin Dose 30 MG; Start 03/17/19 at 09:00 Albuterol (Proventil 0.083% (Neb)) 2.5 mg Q4H RESP THERAPY NEB Last administered on 03/18/19 09:52; Admin Dose 2.5 MG; Start 03/16/19 at 13:00 Ipratropium [place] (Atrovent 0.02% (Neb)) 0.5 mg Q4H RESP THERAPY NEB Last administered on 03/18/19 09:52; Admin Dose 0.5 MG; Start 03/16/19 at 13:00 Azithromycin 250 ml @ 250 mls/hr Q24H IV Last administered on 03/18/19 09:59; Admin Dose 250 MLS/HR; Start 03/16/19 at 09:30 Aspirin (Halfprin) 81 mg DAILY PO Last administered on 03/18/19 08:35; Admin Dose 81 MG; Start 03/16/19 at 09:30 Atorvastatin Calcium (Lipitor) 80 mg QHS PO Last administered on 03/17/19 20:36; Admin Dose 80 MG; Start 03/16/19 at 21:00 Gabapentin (Neurontin) 600 mg TID PO Last administered on 03/18/19 08:34; Admin Dose 600 MG; Start 03/16/19 at 13:00 Metoprolol Succinate (Toprol Xl) 50 mg DAILY PO Last administered on 03/18/19 08:36; Admin Dose 50 MG; Start 03/17/19 at 09:00 Spironolactone (Aldactone) 50 mg DAILY PO Last administered on 03/18/19 08:34; Admin Dose 50 MG; Start 03/17/19 at 09:00 Insulin Aspart (Novolog Insulin Pen) NOVOLOG *MODERATE* ALGORITHM WITH MEALS BEDTIME SC Last administered on 03/18/19 08:32; Admin Dose 12 UNIT; Start 03/16/19 at 12:00 Miscellaneous Information 1 ea NOTE XX ; Start 03/16/19 at 11:00 Glucose (Glutose) 15 gm Q15M PRN PO DECREASED GLUCOSE; Start 03/16/19 at 11:00 Glucose (Glutose) 22.5 gm Q15M PRN PO DECREASED GLUCOSE; Start 03/16/19 at 11:00 Dextrose (D50w Syringe) 25 ml Q15M PRN IV DECREASED GLUCOSE; Start 03/16/19 at 11:00 Dextrose (D50w Syringe) 50 ml Q15M PRN IV DECREASED GLUCOSE; Start 03/16/19 at 11:00 Glucagon (Glucagen) 1 mg Q15M PRN IM DECREASED GLUCOSE; Start 03/16/19 at 11:00 Glucose (Glutose) 15 gm Q15M PRN BUCCAL DECREASED GLUCOSE; Start 03/16/19 at 11:00 Nicotine (Nicoderm 21 Mg/ 24hr) 1 patch DAILY TRANSDERM Last administered on 03/18/19 08:37; Admin Dose 1 PATCH; Start 03/17/19 at 09:00 Fish Oil (Fish Oil) 1,000 mg BID PO Last administered on 03/18/19 08:35; Admin Dose 1,000 MG; Start 03/17/19 at 10:30 Cefepime HCl 50 ml @ 100 mls/hr Q12 IVPB Last administered on 03/18/19 08:38; Admin Dose 100 MLS/HR; Start 03/17/19 at 12:30 Methylprednisolone Sodium Succinate (Solu-Medrol) 40 mg Q12 IV Last administered on 03/18/19 08:48; Admin Dose 40 MG; Start 03/17/19 at 21:00 Insulin Glargine (Lantus) 35 units BID SC Last administered on 03/18/19 08:32; Admin Dose 35 UNITS; Start 03/17/19 at 21:00 Acetaminophen (Tylenol Tab) 1,000 mg Q6H PRN PO MILD PAIN(1-3)OR ELEVATED TEMP Last administered on 03/18/19at 00:49; Admin Dose 1,000 MG; Start 03/18/19 at 01:00 Zolpidem Tartrate (Ambien) 5 mg HS PRN PO INSOMNIA Last administered on 03/18/19 00:49; Admin Dose 5 MG; Start 03/18/19 at 01:00 KANU CURRAN Mar 18, 2019 12:36
[2019-03-18] MEDS ORDERED: LIDOCAINE 1% (MPF) 5 ML VIAL SC ONE (13:30)
[2019-03-18 13:42] VITALS: BP 146/63; PULSE 56; RESP 18
[2019-03-18] MEDS ORDERED: NICO-546 TRANSDERM (16:18)
[2019-03-18] MEDS ORDERED: AZIT250T13 PO (16:18)
[2019-03-18] MEDS ORDERED: AMLO-218 PO (16:19)
[2019-03-18] MEDS ORDERED: INSULIN ASPART [NOVOLOG] 3 ML PEN SC SCH (18:00)
[2019-03-18 19:58] VITALS: BP 128/64; PULSE 67; RESP 18
[2019-03-18] MEDS: ATORVASTATIN 80 MG TAB PO SCH (20:34)
--- NOTE | 2019-03-18 20:48 | PN ---
Date/Time of Note Date/Time of Note DATE: 03/18/19 TIME: 20:45 Assessment/Plan VTE Prophylaxis Risk score (from Nsg)>0 risk: 5 SCD applied (from Nsg): Yes Pharmacological prophylaxis: LMWH Lines/Catheters IV Catheter Type (from Nrsg): Peripheral IV Urinary Cath still in place: No Assessment/Plan Hospital Course 79 years old male with history of heavy smoking, COPD presenting with shortness of breath in the setting of COPD exacerbation and multilobar pneumonia. Also acute renal failure and hyperkalemia noted #Multilobar lung infiltrate #CAP (community acquired pneumonia) #COPD exacerbation, resolved #SOB (shortness of breath) improved -IV Cefepime and azithromycin for community-acquired pneumonia, -ID Pulm on board -DC IV Solu-Medrol #Right Pleuritic chest pain due to pneumonia D-dimer elevated. Cannot do CT angiogram given NILTON VQ scan was low prob for out pulmonary embolism # NILTON (acute kidney injury), prerenal azotemia, improving #Hyperkalemia, improving -IV bicarbonate drip for NILTON and hyperkalemia -Monitor creatinine -Avoid nephrotoxic agents, no dose medications - DC Benazepril Aldactone Bumex #CAD S/P percutaneous coronary angioplasty Recent LHC at [facility] with unremarkable results -continue aspirin, statin, beta-romana - Serial troponin unremarkable # Heavy smoker Counselled extensively - Nicotine patch # Diabetes mellitus with insulin therapy uncontrolled - A1C 8.2 - Holding oral agents while inpatient - Lantus 35 BID and sliding scale - Meal time insulin 12 U - ADA diet #HTN -continue Norvasc and metoprolol -Avoid FABIAN inhibitor ARB , Aldactone given NILTON and hyperkalemia #PPX: Lovenox and Pepcid Dispo : Home with home health with ABX Result Diagram: 03/18/1957 03/18/19 0657 Results 24hrs Laboratory Tests Test 03/18/19 00:47 03/18/19 06:57 03/18/19 08:01 03/18/19 12:51 Bedside Glucose 387 H 392 H 486 *H White Blood Count 6.6 Red Blood Count 3.90 L Hemoglobin 10.3 L Hematocrit 33.1 L Mean Corpuscular 84.9 Volume Mean Corpuscular 26.4 L Hemoglobin Mean Corpuscular 31.1 L Hemoglobin Concent Red Cell 15.5 H Distribution Width Platelet Count 298 Mean Platelet Volume 10.6 H Immature 2.700 H Granulocytes % Neutrophils % 75.0 Lymphocytes % 14.2 L Monocytes % 8.1 Eosinophils % 0.0 Basophils % 0.0 Nucleated Red Blood 0.0 Cells % Immature 0.180 H Granulocytes # Neutrophils # 5.0 Lymphocytes # 0.9 Monocytes # 0.5 Eosinophils # 0.0 Basophils # 0.0 Nucleated Red Blood 0.0 Cells # Sodium Level 137 Potassium Level 4.9 Chloride Level 104 Carbon Dioxide Level 21 Anion Gap 12 Blood Urea Nitrogen 47 H Creatinine 1.23 Est Glomerular Filtrat Rate mL/min Glucose Level 401 *H Calcium Level 9.2 Phosphorus Level 4.3 Magnesium Level 2.4 Total Bilirubin 0.2 Direct Bilirubin 0.00 Indirect Bilirubin 0.2 Aspartate Amino 170 #H Transf (AST/SGOT) Alanine 184 H Aminotransferase (AL T/SGPT) Alkaline Phosphatase 72 Total Protein 6.8 Albumin 3.7 Globulin 3.10 Albumin/Globulin 1.19 Ratio Test 03/18/19 17:13 03/18/19 20:33 Bedside Glucose 440 *H 400 H Exam/Review of Systems Exam Vitals Vital Signs Date Temp Pulse Resp B/P (MAP) Pulse Ox O2 O2 Flow FiO2 Time Delivery Rate 03/18/19 97.9 67 18 128/64 97 19:58 (85) 03/18/19 2.0 18:03 03/18/19 Nasal 18:02 Cannula Intake and Output 03/17/19 03/17/19 03/18/19 1515:00 23:00 07:00 IntakeIntake Total 1110 ml 1110 ml 1323 ml BalanceBalance 1110 ml 1110 ml 1323 ml Exam Gen.: In no acute distress, pleasant and cooperative Eyes: Anicteric, conjunctiva normal, PERRLA, EOM intact HEENT: Normocephalic, atraumatic, hearing grossly intact, oral mucosa dry no oral lesions Neck: Supple, no masses, trachea midline Cardiovascular: Regular rate and rhythm, no peripheral edema, no murmurs, no gallops, no rubs Respiratory: no use of accessory muscles of respiration, bilateral inspiratory wheezes, expiration mildly prolonged Extremities: No cyanosis, no edema, no calf tenderness, pulses bilaterally palpable, extremities warm and perfused Abdomen: Soft, not distended, nontender, bowel sounds present, no guarding, no rebound Neurological: Alert and oriented x3, speech normal, CN 2-12 no deficit, no motor or sensory deficit, coordination normal : No Aguilar catheter Heme: No acute bleeding, no ecchymosis or petechia Psych: No anxiety depression, mood and affect appropriate Results Results 24hrs Laboratory Tests Test 03/18/19 00:47 03/18/19 06:57 03/18/19 08:01 03/18/19 12:51 Bedside Glucose 387 H 392 H 486 *H White Blood Count 6.6 Red Blood Count 3.90 L Hemoglobin 10.3 L Hematocrit 33.1 L Mean Corpuscular 84.9 Volume Mean Corpuscular 26.4 L Hemoglobin Mean Corpuscular 31.1 L Hemoglobin Concent Red Cell 15.5 H Distribution Width Platelet Count 298 Mean Platelet Volume 10.6 H Immature 2.700 H Granulocytes % Neutrophils % 75.0 Lymphocytes % 14.2 L Monocytes % 8.1 Eosinophils % 0.0 Basophils % 0.0 Nucleated Red Blood 0.0 Cells % Immature 0.180 H Granulocytes # Neutrophils # 5.0 Lymphocytes # 0.9 Monocytes # 0.5 Eosinophils # 0.0 Basophils # 0.0 Nucleated Red Blood 0.0 Cells # Sodium Level 137 Potassium Level 4.9 Chloride Level 104 Carbon Dioxide Level 21 Anion Gap 12 Blood Urea Nitrogen 47 H Creatinine 1.23 Est Glomerular Filtrat Rate mL/min Glucose Level 401 *H Calcium Level 9.2 Phosphorus Level 4.3 Magnesium Level 2.4 Total Bilirubin 0.2 Direct Bilirubin 0.00 Indirect Bilirubin 0.2 Aspartate Amino 170 #H Transf (AST/SGOT) Alanine 184 H Aminotransferase (AL T/SGPT) Alkaline Phosphatase 72 Total Protein 6.8 Albumin 3.7 Globulin 3.10 Albumin/Globulin 1.19 Ratio Test 03/18/19 17:13 03/18/19 20:33 Bedside Glucose 440 *H 400 H Medications Medication Current Medications Sodium Chloride 1,000 ml @ 100 mls/hr Q10H IV Last administered on 03/18/19at 14:25; Admin Dose 100 MLS/HR; Start 03/16/19 at 09:03 IV Flush (NS 3 ml) 3 ml PER PROTOCOL IV ; Start 03/16/19 at 09:30 Docusate Sodium (Colace) 100 mg Q12H PRN PO .CONSTIPATION; Start 03/16/19 at 09:30 Enoxaparin Sodium (Lovenox) 30 mg DAILY SC Last administered on 03/18/19 08:47 ; Admin Dose 30 MG; Start 03/17/19 at 09:00 Albuterol (Proventil 0.083% (Neb)) 2.5 mg Q4H RESP THERAPY NEB Last administered on 03/18/19 14:05; Admin Dose 2.5 MG; Start 03/16/19 at 13:00 Ipratropium Row[place] (Atrovent 0.02% (Neb)) 0.5 mg Q4H RESP THERAPY NEB Last administered on 03/18/19 14:05; Admin Dose 0.5 MG; Start 03/16/19 at 13:00 Azithromycin 250 ml @ 250 mls/hr Q24H IV Last administered on 03/18/19 09:59; Admin Dose 250 MLS/HR; Start 03/16/19 at 09:30 Aspirin (Halfprin) 81 mg DAILY PO Last administered on 03/18/19 08:35; Admin Dose 81 MG; Start 03/16/19 at 09:30 Atorvastatin Calcium (Lipitor) 80 mg QHS PO Last administered on 03/18/19 20:34; Admin Dose 80 MG; Start 03/16/19 at 21:00 Gabapentin (Neurontin) 600 mg TID PO Last administered on 03/18/19 20:34; Admin Dose 600 MG; Start 03/16/19 at 13:00 Metoprolol Succinate (Toprol Xl) 50 mg DAILY PO Last administered on 03/18/19 08:36; Admin Dose 50 MG; Start 03/17/19 at 09:00 Spironolactone (Aldactone) 50 mg DAILY PO Last administered on 03/18/19 08:34; Admin Dose 50 MG; Start 03/17/19 at 09:00 Insulin Aspart (Novolog Insulin Pen) NOVOLOG *MODERATE* ALGORITHM WITH MEALS BEDTIME SC Last administered on 03/18/19 17:16; Admin Dose 12 UNIT; Start 03/16/19 at 12:00 Miscellaneous Information 1 ea NOTE XX ; Start 03/16/19 at 11:00 Glucose (Glutose) 15 gm Q15M PRN PO DECREASED GLUCOSE; Start 03/16/19 at 11:00 Glucose (Glutose) 22.5 gm Q15M PRN PO DECREASED GLUCOSE; Start 03/16/19 at 11:00 Dextrose (D50w Syringe) 25 ml Q15M PRN IV DECREASED GLUCOSE; Start 03/16/19 at 11:00 Dextrose (D50w Syringe) 50 ml Q15M PRN IV DECREASED GLUCOSE; Start 03/16/19 at 11:00 Glucagon (Glucagen) 1 mg Q15M PRN IM DECREASED GLUCOSE; Start 03/16/19 at 11:00 Glucose (Glutose) 15 gm Q15M PRN BUCCAL DECREASED GLUCOSE; Start 03/16/19 at 11:00 Nicotine (Nicoderm 21 Mg/ 24hr) 1 patch DAILY TRANSDERM Last administered on 03/18/19 08:37; Admin Dose 1 PATCH; Start 03/17/19 at 09:00 Fish Oil (Fish Oil) 1,000 mg BID PO Last administered on 03/18/19 20:34; Admin Dose 1,000 MG; Start 03/17/19 at 10:30 Cefepime HCl 50 ml @ 100 mls/hr Q12 IVPB Last administered on 03/18/19 20:35; Admin Dose 100 MLS/HR; Start 03/17/19 at 12:30 Insulin Glargine (Lantus) 35 units BID SC Last administered on 03/18/19 20:36; Admin Dose 35 UNITS; Start 03/17/19 at 21:00 Acetaminophen (Tylenol Tab) 1,000 mg Q6H PRN PO MILD PAIN(1-3)OR ELEVATED TEMP Last administered on 03/18/19 00:49; Admin Dose 1,000 MG; Start 03/18/19 at 01:00 Zolpidem Tartrate (Ambien) 5 mg HS PRN PO INSOMNIA Last administered on 03/18/19 00:49; Admin Dose 5 MG; Start 03/18/19 at 01:00 Diagnostic Test (Pha) (Accu-Chek) 1 ea 02 XX ; Start 03/19/19 at 02:00 Insulin Aspart (Novolog Insulin Pen) 7 unit WITH MEALS SC Last administered on 03/18/19 17:17; Admin Dose 7 UNIT; Start 03/18/19 at 18:00 GEOVANY OGDEN MD Mar 18, 2019 20:48
--- NOTE | 2019-03-18 20:49 | DS ---
Date/Time of Note Date/Time of Note DATE: 03/18/19 TIME: 20:49 Discharge Summary Admission/Discharge Info Admit Date/Time Mar 16, 2019 at 01:56 Discharge Date/Time Hx of Present Illness 79 years old on male with past medical history of COPD, CAD status post stent, heavy smoking, insulin-dependent diabetes, hypertension, hyperlipidemia who presents with 2 days of shortness of breath associated with mild productive cough and right lower pleuritic chest pain. Denies fever or chills. Denies Orthopnea, denies paroxysmal nocturnal dyspnea , denies increasing peripheral edema . He was admitted to [facility] in Oct 23 for elevated troponin where LHC was done with unremarkable results. He smokes 1 pck a day and has smoked for most of his life. He is not willing to quit. Work up in the ED was significant for mild hyponatremia, hyperkalemia at 5.6, acute renal failure and chest x-ray findings suggestive of Right mid lung pneumonia. Hospital Course 79 years old male with history of heavy smoking, COPD presenting with shortness of breath in the setting of COPD exacerbation and multilobar pneumonia. Also acute renal failure and hyperkalemia noted #Multilobar lung infiltrate #CAP (community acquired pneumonia) #COPD exacerbation, resolved #SOB (shortness of breath) improved -IV Cefepime and azithromycin for community-acquired pneumonia, -ID Pulm on board -DC IV Solu-Medrol #Right Pleuritic chest pain due to pneumonia D-dimer elevated. Cannot do CT angiogram given NILTON VQ scan was low prob for out pulmonary embolism # NILTON (acute kidney injury), prerenal azotemia, improving #Hyperkalemia, improving -IV bicarbonate drip for NILTON and hyperkalemia -Monitor creatinine -Avoid nephrotoxic agents, no dose medications - DC Benazepril Aldactone Bumex #CAD S/P percutaneous coronary angioplasty Recent LHC at [facility] with unremarkable results -continue aspirin, statin, beta-romana - Serial troponin unremarkable # Heavy smoker Counselled extensively - Nicotine patch # Diabetes mellitus with insulin therapy uncontrolled - A1C 8.2 - Holding oral agents while inpatient - Lantus 35 BID and sliding scale - Meal time insulin 12 U - ADA diet #HTN -continue Norvasc and metoprolol -Avoid FABIAN inhibitor ARB , Aldactone given NILTON and hyperkalemia #PPX: Lovenox and Pepcid Dispo : Home with home health with ABX Home Meds Active Scripts Amlodipine Besylate* (Norvasc*) 10 Mg Tablet, 10 MG PO DAILY, #30 TAB Prov:GEOVANY OGDEN MD 03/18/19 Nicotine* (Nicotine* Patch) 21 mg/day Patch, 1 PATCH TRANSDERM DAILY for 30 Days, #30 PATCH 3 Refills Prov:GEOVANY OGDEN MD 03/18/19 Azithromycin* (Azithromycin*) 250 Mg Tablet, 250 MG PO DAILY, #7 TAB Prov:GEOVANY OGDEN MD 03/18/19 Doxycycline Monohydrate* (Doxycycline Monohydrate*) 100 Mg Tablet, 100 MG PO BID for 7 Days, TAB for Bronchitis Prov:SCOTT QUEZADA 08/20/16 Nystatin (Nystatin Powder) 1 Each Powder.ea., 1 APPLIC TOPICAL BID for 7 Days, #1 BOTTLE to affected area, perineal area Prov:SCOTT QUEZADA 08/20/16 Aspirin* (Aspirin* EC) 81 Mg Tablet.dr, 81 MG PO DAILY for 30 Days, 3 Refills Prov:JOYCE QUEZADAROSY 08/20/16 Ipratropium-Albuterol (Ipratropium-Albuterol) 0.5-3 Mg/3 Ml Ampul.neb, 3 ML HHN Q8 for 30 Days, 3 Refills Prov:Huong QUEZADAShanteACEROSY 08/20/16 Levalbuterol Hcl* (Xopenex*) 1.25 Mg/0.5 Ml Vial.neb, 1.25 MG HHN Q6H RESP THERAPY PRN for wheeze/sob, #90 3 Refills Prov:SCOTT QUEZADA 08/20/16 Fluconazole* (Fluconazole*) 100 Mg Tablet, 100 MG PO DAILY for 7 Days, TAB Prov:Huong QUEZADAShanteACEROSY 08/20/16 Nateglinide* (Nateglinide*) 120 Mg Tablet, 120 MG PO AC MEALS for 30 Days, TAB 3 Refills Prov:SCOTT QUEZADA 08/20/16 Reported Medications Amlodipine Besylate/Benazepril (Amlodipine-Benazepril 5-10 mg) 1 Each Capsule, 1 TAB PO DAILY for 30 Days, #30 03/16/19 Insulin Glargine* (Lantus*) 100 Unit/Ml Soln, 40 UNIT SC QHS, #1 VIAL 03/16/19 Liraglutide (Victoza 2-Bong) 0.6 Mg/0.1 Ml Pen.injctr, 0.6 MG SQ QAM, SYR 03/16/19 Insulin Lispro (Humalog Kwikpen U-100) 100 Unit/1 Ml Insuln.pen, 18 UNIT SQ AC LUNCH AND DINNER, EA 03/16/19 Insulin Lispro (Humalog Kwikpen U-100) 100 Unit/1 Ml Insuln.pen, 9 UNIT SQ AC BREAKFAST, EA 03/16/19 [place]-3 Acid Ethyl Esters ([place]-3 Acid Ethyl Esters) 1 Gm Capsule, 1 GM PO BID for 30 Days 03/16/19 Spironolactone* (Aldactone*) 50 Mg Tablet, 50 MG PO DAILY for 30 Days, #30 03/16/19 Bumetanide* (Bumetanide*) 1 Mg Tablet, 1 MG PO BID for 30 Days, #30 03/16/19 Dapagliflozin Propanediol (Farxiga) 10 Mg Tablet, 10 MG PO QPM for 30 Days, #30 03/16/19 Atorvastatin* (Atorvastatin*) 80 Mg Tablet, 80 MG PO QHS, #30 TAB 03/16/19 Metoprolol Succinate* (Toprol XL*) 50 Mg Tab.er.24h, 50 MG PO DAILY, #30 TAB 08/18/16 Fenofibrate, Micronized (Fenofibrate) 134 Mg Capsule, 134 MG PO DAILY, CAP 08/18/16 Liraglutide (Victoza 3-Bong) 0.6 Mg/0.1 Ml Pen.injctr, 1.8 MG SQ DAILY, SYR 08/18/16 Levalbuterol* (Xopenex* HFA) 15 Gm Inha, 1 PUFFS INH Q8H PRN for WHEEZING AND SOB, INHALER 08/18/16 Beclomethasone Dip* (Qvar 40*) 7.3 Gm Inha, 1 PUFF INH BID, #1 INHALER 08/18/16 Ergocalciferol (Vitamin D2) (VITAMIN D2) 50,000 Unit Capsule, 66064 UNIT PO Q7D for QSAT, CAP 08/18/16 Metformin Hcl* (Metformin Hcl*) 1,000 Mg Tablet, 1000 MG PO WITH BREAKFAST DINNE, #60 TAB 08/18/16 Famotidine* (Famotidine*) 20 Mg Tablet, 20 MG PO BID, #60 TAB 08/18/16 Hydrocodone/Acetaminophen (Lorcet Hd 10-325 mg Tablet) 1 Each Tablet, 1 EACH PO QID, TAB 08/18/16 Gabapentin* (Gabapentin*) 300 Mg Capsule, 600 MG PO TID, #90 CAP 08/18/16 Discontinued Reported Medications Atorvastatin Calcium* (Atorvastatin Calcium*) 20 Mg Tablet, 20 MG PO QHS, #30 TAB 08/18/16 Primary Care Provider May Estrada MD Pending Labs Laboratory Tests Test 03/18/19 00:47 03/18/19 06:57 03/18/19 08:01 03/18/19 12:51 Bedside 387 392 486 Glucose mg/dL (70-220) mg/dL (70-220) mg/dL (70-220) White Blood 6.6 Count 10^3/ul (4.8-1 0.8) Red Blood 3.90 Count 10^6/ul (4.70- 6.10) Hemoglobin 10.3 g/dl (14.0-18. 0) Hematocrit 33.1 % (42.0-52.0) Mean 84.9 Corpuscular fl (82.0-101.0 Volume ) Mean 26.4 Corpuscular pg (29.0-33.0) Hemoglobin Mean 31.1 Corpuscular g/dl (32.0-37. Hemoglobin Conc 0) ent Red Cell 15.5 Distribution % (11.5-14.5) Width Platelet Count 298 10^3/UL (140-4 15) Mean Platelet 10.6 Volume fl (7.4-10.4) Immature 2.700 Granulocytes % % (0.001-0.429 ) Neutrophils % 75.0 % (39.0-77.0) Lymphocytes % 14.2 % (15.0-51.0) Monocytes % 8.1 % (0.0-11.0) Eosinophils % 0.0 % (0.0-7.0) Basophils % 0.0 % (0.0-2.0) Nucleated Red 0.0 Blood Cells % /100WBC (0.0-0 .0) Immature 0.180 Granulocytes # 10^3/ul (0.0-0 .031) Neutrophils # 5.0 10^3/ul (1.6-7 .5) Lymphocytes # 0.9 10^3/ul (0.8-2 .9) Monocytes # 0.5 10^3/ul (0.3-0 .9) Eosinophils # 0.0 10^3/ul (0.0-0 .5) Basophils # 0.0 10^3/ul (0.0-0 .1) Nucleated Red 0.0 Blood Cells # 10^3/ul (0.0-0 .0) Sodium Level 137 mmol/L (135-14 4) Potassium 4.9 Level mmol/L (3.5-5. 1) Chloride Level 104 mmol/L (97-110 ) Carbon Dioxide 21 Level mmol/L (21-31) Anion Gap 12 (5-13) Blood Urea 47 Nitrogen mg/dl (7-20) Creatinine 1.23 mg/dl (0.61-1. 24) Est Glomerular mL/min (>60) Filtrat Rate mL/min Glucose Level 401 mg/dl (70-220) Calcium Level 9.2 mg/dl (8.4-10. 2) Phosphorus 4.3 Level mg/dl (2.5-4.9 ) Magnesium 2.4 Level mg/dl (1.7-2.5 ) Total 0.2 Bilirubin mg/dl (0.2-1.3 ) Direct 0.00 Bilirubin mg/dl (0.00-0. 20) Indirect 0.2 Bilirubin mg/dl (0-1.1) Aspartate Amino 170 Transf (AST/SGO IU/L (15-46) T) Alanine 184 Aminotransferas IU/L (13-69) e (ALT/SGPT) Alkaline 72 Phosphatase IU/L (42-121) Total Protein 6.8 g/dl (6.1-8.1) Albumin 3.7 g/dl (3.3-4.9) Globulin 3.10 g/dl (1.3-3.2) Albumin/Globuli 1.19 n Ratio Test 03/18/19 17:13 03/18/19 20:33 Bedside 440 400 Glucose mg/dL (70-220) mg/dL (70-220) OZHAND,ALI MD Mar 18, 2019 20:49
[2019-03-18] MEDS ORDERED: HYDROCODONE/APAP (5/325) TAB PO PRN ×2 (21:00)
[2019-03-19] MEDS: ALBUTEROL 0.083% (NEB) 2.5 MG/3 ML AMP NEB SCH ×5 (01:00→17:38)
[2019-03-19] MEDS: IPRATROPIUM (NEB) 0.5 MG/2.5 ML AMP NEB SCH ×5 (01:00→17:38)
[2019-03-19] MEDS: Insulin NOVOLOG SS MODERATE Algorithm(NPO/TPN/ENTERAL FEEDS) SC SCH ×5 (01:27→17:00)
[2019-03-19 01:45] VITALS: BP 118/68; PULSE 74; RESP 18
[2019-03-19] MEDS ORDERED: ACCU-CHEK XX SCH (02:00)
[2019-03-19] MEDS: SOD CHLORIDE 0.9% 1,000 ML IV SCH (05:59)
[2019-03-19 07:30] VITALS: BP 136/60; PULSE 60; RESP 18
[2019-03-19] MEDS ORDERED: INSULIN ASPART [NOVOLOG] 3 ML PEN SC SCH (08:00)
[2019-03-19] MEDS: AZITHROMYCIN 500MG/NS (PMX) 250 ML IV SCH (08:45)
[2019-03-19] MEDS: SPIRONOLACTONE 50 MG TAB PO SCH (08:45)
[2019-03-19] MEDS: ASPIRIN (EC) 81 MG TAB PO SCH (08:45)
[2019-03-19] MEDS: FISH OIL 1,000 MG CAP PO SCH (08:45)
[2019-03-19] MEDS: CEFEPIME 1GM/50 ML (PMX) 50 ML IVPB SCH ×2 (08:45→17:40)
[2019-03-19] MEDS: GABAPENTIN 300 MG CAP PO SCH ×2 (08:46→12:31)
[2019-03-19] MEDS: METOPROLOL (XL) 50 MG TAB PO SCH (08:46)
[2019-03-19] MEDS: INSULIN ASPART [NOVOLOG] 3 ML PEN SC SCH ×3 (08:48→17:49)
[2019-03-19] MEDS: INSULIN GLARGINE [LANTus] (100 UNITS/ML) SYG SC SCH (08:49)
[2019-03-19] MEDS: ENOXAPARIN 30 MG/0.3 ML SYG SC SCH (08:50)
[2019-03-19] MEDS: NICOTINE (21 MG/24 HR) PATCH TRANSDERM SCH (08:51)
--- NOTE | 2019-03-19 11:35 | PN ---
Date/Time of Note Date/Time of Note DATE: 03/19/19 TIME: 11:34 Assessment/Plan VTE Prophylaxis Risk score (from Ns)>0 risk: 5 SCD applied (from Ns): No SCD contraindicated: low risk/ambulating Pharmacological prophylaxis: LMWH Lines/Catheters IV C[facility]ter Type (from [facility]): Peripheral IV Urinary Cath still in place: No Assessment/Plan Assessment/Plan 1. pneumonia (b0 copd, ding well 2. d/c home Result Diagram: 03/19/19 0541 03/19/19 0541 Results 24hrs Laboratory Tests Test 03/18/19 12:51 03/18/19 17:13 03/18/19 20:33 03/19/19 01:22 Bedside Glucose 486 *H 440 *H 400 H 305 H Test 03/19/19 05:41 03/19/19 05:58 03/19/19 08:32 White Blood Count 7.9 Red Blood Count 3.78 L Hemoglobin 10.2 L Hematocrit 32.0 L Mean Corpuscular 84.7 Volume Mean Corpuscular 27.0 L Hemoglobin Mean Corpuscular 31.9 L Hemoglobin Concent Red Cell 15.1 H Distribution Width Platelet Count 335 Mean Platelet Volume 10.5 H Immature 5.800 H Granulocytes % Neutrophils % 59.6 Segmented 51 Neutrophils % (Manual) Lymphocytes % 23.9 Lymphocytes % 30 (Manual) Reactive Lymphocytes 1 H % (Manual) Monocytes % 10.0 Monocytes % (Manual) 17 H Eosinophils % 0.3 Basophils % 0.4 Metamyelocytes % 1 H (manual) Nucleated Red Blood 1 H Cells % Immature 0.460 H Granulocytes # Neutrophils # 4.7 Lymphocytes (Manual) 2.3 Lymphocytes # 1.9 Reactive Lymphocytes 0.0 # Monocytes # 0.8 Monocytes # (Manual) 1.3 H Eosinophils # 0.0 Basophils # 0.0 Metamyelocytes # 0.0 Nucleated Red Blood 0.0 Cells # Platelet Estimate NORMAL Giant Platelets 2 H Polychromasia 1+ Sodium Level 141 Potassium Level 4.5 Chloride Level 110 Carbon Dioxide Level 22 Anion Gap 9 Blood Urea Nitrogen 36 #H Creatinine 0.98 Est Glomerular Filtrat Rate mL/min Glucose Level 238 #H Calcium Level 9.1 Phosphorus Level 3.1 Magnesium Level 2.3 Total Bilirubin 0.3 Direct Bilirubin 0.00 Indirect Bilirubin 0.3 Aspartate Amino 163 H Transf (AST/SGOT) Alanine 218 H Aminotransferase (AL T/SGPT) Alkaline Phosphatase 67 Total Protein 6.6 Albumin 3.4 Globulin 3.20 Albumin/Globulin 1.06 Ratio Bedside Glucose 213 212 Subjective 24 Hr Interval Summary Free Text/Dictation no complaint breathing easy want to go home Exam/Review of Systems Exam Vitals Vital Signs Date Temp Pulse Resp B/P (MAP) Pulse Ox O2 O2 Flow FiO2 Time Delivery Rate 03/19/19 2.0 09:27 03/19/19 64 18 97 Nasal 09:27 Cannula 03/19/19 97.7 136/60 07:30 (85) Intake and Output 03/18/19 03/18/19 03/19/19 1515:00 23:00 07:00 IntakeIntake Total 1177 ml 1050 ml OutputOutput Total 400 ml BalanceBalance 777 ml 1050 ml Exam nad, some prolonged expiration, no wheeze rrr Results Results 24hrs Laboratory Tests Test 03/18/19 12:51 03/18/19 17:13 03/18/19 20:33 03/19/19 01:22 Bedside Glucose 486 *H 440 *H 400 H 305 H Test 03/19/19 05:41 03/19/19 05:58 03/19/19 08:32 White Blood Count 7.9 Red Blood Count 3.78 L Hemoglobin 10.2 L Hematocrit 32.0 L Mean Corpuscular 84.7 Volume Mean Corpuscular 27.0 L Hemoglobin Mean Corpuscular 31.9 L Hemoglobin Concent Red Cell 15.1 H Distribution Width Platelet Count 335 Mean Platelet Volume 10.5 H Immature 5.800 H Granulocytes % Neutrophils % 59.6 Segmented 51 Neutrophils % (Manual) Lymphocytes % 23.9 Lymphocytes % 30 (Manual) Reactive Lymphocytes 1 H % (Manual) Monocytes % 10.0 Monocytes % (Manual) 17 H Eosinophils % 0.3 Basophils % 0.4 Metamyelocytes % 1 H (manual) Nucleated Red Blood 1 H Cells % Immature 0.460 H Granulocytes # Neutrophils # 4.7 Lymphocytes (Manual) 2.3 Lymphocytes # 1.9 Reactive Lymphocytes 0.0 # Monocytes # 0.8 Monocytes # (Manual) 1.3 H Eosinophils # 0.0 Basophils # 0.0 Metamyelocytes # 0.0 Nucleated Red Blood 0.0 Cells # Platelet Estimate NORMAL Giant Platelets 2 H Polychromasia 1+ Sodium Level 141 Potassium Level 4.5 Chloride Level 110 Carbon Dioxide Level 22 Anion Gap 9 Blood Urea Nitrogen 36 #H Creatinine 0.98 Est Glomerular Filtrat Rate mL/min Glucose Level 238 #H Calcium Level 9.1 Phosphorus Level 3.1 Magnesium Level 2.3 Total Bilirubin 0.3 Direct Bilirubin 0.00 Indirect Bilirubin 0.3 Aspartate Amino 163 H Transf (AST/SGOT) Alanine 218 H Aminotransferase (AL T/SGPT) Alkaline Phosphatase 67 Total Protein 6.6 Albumin 3.4 Globulin 3.20 Albumin/Globulin 1.06 Ratio Bedside Glucose 213 212 Medications Medication Current Medications IV Flush (NS 3 ml) 3 ml PER PROTOCOL IV ; Start 03/16/19 at 09:30 Docusate Sodium (Colace) 100 mg Q12H PRN PO .CONSTIPATION; Start 03/16/19 at 09:30 Enoxaparin Sodium (Lovenox) 30 mg DAILY SC Last administered on 03/19/19 08:50; Admin Dose 30 MG; Start 03/17/19 at 09:00 Albuterol (Proventil 0.083% (Neb)) 2.5 mg Q4H RESP THERAPY NEB Last administered on 03/19/19 09:26; Admin Dose 2.5 MG; Start 03/16/19 at 13:00 Ipratropium [place] (Atrovent 0.02% (Neb)) 0.5 mg Q4H RESP THERAPY NEB Last administered on 03/19/19 09:27; Admin Dose 0.5 MG; Start 03/16/19 at 13:00 Azithromycin 250 ml @ 250 mls/hr Q24H IV Last administered on 03/19/19 08:45; Admin Dose 250 MLS/HR; Start 03/16/19 at 09:30 Aspirin (Halfprin) 81 mg DAILY PO Last administered on 03/19/19 08:45; Admin Dose 81 MG; Start 03/16/19 at 09:30 Atorvastatin Calcium (Lipitor) 80 mg QHS PO Last administered on 03/18/19 20:34; Admin Dose 80 MG; Start 03/16/19 at 21:00 Gabapentin (Neurontin) 600 mg TID PO Last administered on 03/19/19 08:46; Admin Dose 600 MG; Start 03/16/19 at 13:00 Metoprolol Succinate (Toprol Xl) 50 mg DAILY PO Last administered on 03/19/19 08:46; Admin Dose 50 MG; Start 03/17/19 at 09:00 Spironolactone (Aldactone) 50 mg DAILY PO Last administered on 03/19/19 08:45; Admin Dose 50 MG; Start 03/17/19 at 09:00 Miscellaneous Information 1 ea NOTE XX ; Start 03/16/19 at 11:00 Glucose (Glutose) 15 gm Q15M PRN PO DECREASED GLUCOSE; Start 03/16/19 at 11:00 Glucose (Glutose) 22.5 gm Q15M PRN PO DECREASED GLUCOSE; Start 03/16/19 at 11:00 Dextrose (D50w Syringe) 25 ml Q15M PRN IV DECREASED GLUCOSE; Start 03/16/19 at 11:00 Dextrose (D50w Syringe) 50 ml Q15M PRN IV DECREASED GLUCOSE; Start 03/16/19 at 11:00 Glucagon (Glucagen) 1 mg Q15M PRN IM DECREASED GLUCOSE; Start 03/16/19 at 11:00 Glucose (Glutose) 15 gm Q15M PRN BUCCAL DECREASED GLUCOSE; Start 03/16/19 at 11:00 Nicotine (Nicoderm 21 Mg/ 24hr) 1 patch DAILY TRANSDERM Last administered on 03/19/19at 08:51; Admin Dose 1 PATCH; Start 03/17/19 at 09:00 Fish Oil (Fish Oil) 1,000 mg BID PO Last administered on 03/19/19at 08:45; Admin Dose 1,000 MG; Start 03/17/19 at 10:30 Cefepime HCl 50 ml @ 100 mls/hr Q12 IVPB Last administered on 03/19/19at 08:45; Admin Dose 100 MLS/HR; Start 03/17/19 at 12:30 Insulin Glargine (Lantus) 35 units BID SC Last administered on 03/19/19 08:49; Admin Dose 35 UNITS; Start 03/17/19 at 21:00 Acetaminophen (Tylenol Tab) 1,000 mg Q6H PRN PO MILD PAIN(1-3)OR ELEVATED TEMP Last administered on 03/18/19at 00:49; Admin Dose 1,000 MG; Start 03/18/19 at 01:00 Zolpidem Tartrate (Ambien) 5 mg HS PRN PO INSOMNIA Last administered on 03/18/19at 00:49; Admin Dose 5 MG; Start 03/18/19 at 01:00 Diagnostic Test (Pha) (Accu-Chek) 1 ea 02 XX ; Start 03/19/19 at 02:00 Insulin Aspart (Novolog Insulin Pen) 12 unit WITH MEALS SC Last administered on 03/19/19at 08:48; Admin Dose 12 UNIT; Start 03/19/19 at 08:00 Acetaminophen/ Hydrocodone Bitart ([place]ennis (5/325)) 1 tab Q4H PRN PO MODERATE PAIN LEVEL 4-6 Last administered on 03/18/19at 21:28; Admin Dose 1 TAB; Start 03/18/19 at 21:00 Acetaminophen/ Hydrocodone Bitart ([place]ennis (5/325)) 2 tab Q4H PRN PO PAIN LEVEL 7-10; Start 03/18/19 at 21:00 Insulin Aspart (Novolog Insulin Pen) (Adult SC Insulin - Moder... Q4 SC Last administered on 03/19/19at 08:58; Admin Dose 4 UNIT; Start 03/19/19 at 01:00 FIDEL SETH MD Mar 19, 2019 11:35
[2019-03-19 14:19] VITALS: BP 121/58; PULSE 67; RESP 18
--- NOTE | 2019-03-19 15:13 | CONS ---
Consult Date/Type/Reason Admit Date/Time Mar 16, 2019 at 01:56 Initial Consult Date 03/17/19 Type of Consultation: Pulm Requesting Provider: GEOVANY OGDEN MD Date/Time of Note DATE: 03/19/19 TIME: 15:09 Subjective No events. Better. Afebrile. Objective Vitals Vital Signs Date Temp Pulse Resp B/P (MAP) Pulse Ox O2 O2 Flow FiO2 Time Delivery Rate 03/19/19 98.0 67 18 121/58 96 Room Air 14:19 (79) 03/19/19 2.0 09:27 Intake and Output 03/18/19 03/18/19 03/19/19 1515:00 23:00 07:00 IntakeIntake Total 1177 ml 1050 ml OutputOutput Total 400 ml BalanceBalance 777 ml 1050 ml Exam HEENT: Neck supple; no JVD; no LAD CVS: RRR, S1 and S2 CHEST: Subtle right-sided upper lung zone egophony ABD: Soft, NT, + BS EXT: No c/c/e Results/Medications Result Diagram: 03/19/19 0541 03/19/19 0541 Results 24 hrs Laboratory Tests Test 03/18/19 17:13 03/18/19 20:33 03/19/19 01:22 03/19/19 05:41 Bedside Glucose 440 *H 400 H 305 H White Blood Count 7.9 Red Blood Count 3.78 L Hemoglobin 10.2 L Hematocrit 32.0 L Mean Corpuscular 84.7 Volume Mean Corpuscular 27.0 L Hemoglobin Mean Corpuscular 31.9 L Hemoglobin Concent Red Cell 15.1 H Distribution Width Platelet Count 335 Mean Platelet Volume 10.5 H Immature 5.800 H Granulocytes % Neutrophils % 59.6 Segmented 51 Neutrophils % (Manual) Lymphocytes % 23.9 Lymphocytes % 30 (Manual) Reactive Lymphocytes 1 H % (Manual) Monocytes % 10.0 Monocytes % (Manual) 17 H Eosinophils % 0.3 Basophils % 0.4 Metamyelocytes % 1 H (manual) Nucleated Red Blood 1 H Cells % Immature 0.460 H Granulocytes # Neutrophils # 4.7 Lymphocytes (Manual) 2.3 Lymphocytes # 1.9 Reactive Lymphocytes 0.0 # Monocytes # 0.8 Monocytes # (Manual) 1.3 H Eosinophils # 0.0 Basophils # 0.0 Metamyelocytes # 0.0 Nucleated Red Blood 0.0 Cells # Platelet Estimate NORMAL Giant Platelets 2 H Polychromasia 1+ Sodium Level 141 Potassium Level 4.5 Chloride Level 110 Carbon Dioxide Level 22 Anion Gap 9 Blood Urea Nitrogen 36 #H Creatinine 0.98 Est Glomerular Filtrat Rate mL/min Glucose Level 238 #H Calcium Level 9.1 Phosphorus Level 3.1 Magnesium Level 2.3 Total Bilirubin 0.3 Direct Bilirubin 0.00 Indirect Bilirubin 0.3 Aspartate Amino 163 H Transf (AST/SGOT) Alanine 218 H Aminotransferase (AL T/SGPT) Alkaline Phosphatase 67 Total Protein 6.6 Albumin 3.4 Globulin 3.20 Albumin/Globulin 1.06 Ratio Test 03/19/19 05:58 03/19/19 08:32 03/19/19 12:14 Bedside Glucose 213 212 284 H Home Meds Active Scripts Amlodipine Besylate* (Norvasc*) 10 Mg Tablet, 10 MG PO DAILY, #30 TAB Prov:GEOVANY OGDEN MD 03/18/19 Nicotine* (Nicotine* Patch) 21 mg/day Patch, 1 PATCH TRANSDERM DAILY for 30 Days, #30 PATCH 3 Refills Prov:GEOVANY OGDEN MD 03/18/19 Azithromycin* (Azithromycin*) 250 Mg Tablet, 250 MG PO DAILY, #7 TAB Prov:GEOVANY OGDEN MD 03/18/19 Doxycycline Monohydrate* (Doxycycline Monohydrate*) 100 Mg Tablet, 100 MG PO BID for 7 Days, TAB for Bronchitis Prov:SCOTT QUEZADA 08/20/16 Nystatin (Nystatin Powder) 1 Each Powder.ea., 1 APPLIC TOPICAL BID for 7 Days, #1 BOTTLE to affected area, perineal area Prov:SCOTT QUEZADA 08/20/16 Aspirin* (Aspirin* EC) 81 Mg Tablet.dr, 81 MG PO DAILY for 30 Days, 3 Refills Prov:SCOTT QUEZADA 08/20/16 Ipratropium-Albuterol (Ipratropium-Albuterol) 0.5-3 Mg/3 Ml Ampul.neb, 3 ML HHN Q8 for 30 Days, 3 Refills Prov:SCOTT QUEZADA 08/20/16 Levalbuterol Hcl* (Xopenex*) 1.25 Mg/0.5 Ml Vial.neb, 1.25 MG HHN Q6H RESP THERAPY PRN for wheeze/sob, #90 3 Refills Prov:SCOTT QUEZADA 08/20/16 Fluconazole* (Fluconazole*) 100 Mg Tablet, 100 MG PO DAILY for 7 Days, TAB Prov:SCOTT QUEZADA 08/20/16 Nateglinide* (Nateglinide*) 120 Mg Tablet, 120 MG PO AC MEALS for 30 Days, TAB 3 Refills Prov:SCOTT QUEZADA 08/20/16 Reported Medications Amlodipine Besylate/Benazepril (Amlodipine-Benazepril 5-10 mg) 1 Each Capsule, 1 TAB PO DAILY for 30 Days, #30 03/16/19 Insulin Glargine* (Lantus*) 100 Unit/Ml Soln, 40 UNIT SC QHS, #1 VIAL 03/16/19 Liraglutide (Victoza 2-Bong) 0.6 Mg/0.1 Ml Pen.injctr, 0.6 MG SQ QAM, SYR 03/16/19 Insulin Lispro (Humalog Kwikpen U-100) 100 Unit/1 Ml Insuln.pen, 18 UNIT SQ AC LUNCH AND DINNER, EA 03/16/19 Insulin Lispro (Humalog Kwikpen U-100) 100 Unit/1 Ml Insuln.pen, 9 UNIT SQ AC BREAKFAST, EA 03/16/19 Wylie-3 Acid Ethyl Esters (Wylie-3 Acid Ethyl Esters) 1 Gm Capsule, 1 GM PO BID for 30 Days 03/16/19 Spironolactone* (Aldactone*) 50 Mg Tablet, 50 MG PO DAILY for 30 Days, #30 03/16/19 Bumetanide* (Bumetanide*) 1 Mg Tablet, 1 MG PO BID for 30 Days, #30 03/16/19 Dapagliflozin Propanediol (Farxiga) 10 Mg Tablet, 10 MG PO QPM for 30 Days, #30 03/16/19 Atorvastatin* (Atorvastatin*) 80 Mg Tablet, 80 MG PO QHS, #30 TAB 03/16/19 Metoprolol Succinate* (Toprol XL*) 50 Mg Tab.er.24h, 50 MG PO DAILY, #30 TAB 08/18/16 Fenofibrate, Micronized (Fenofibrate) 134 Mg Capsule, 134 MG PO DAILY, CAP 08/18/16 Liraglutide (Victoza 3-Bong) 0.6 Mg/0.1 Ml Pen.injctr, 1.8 MG SQ DAILY, SYR 08/18/16 Levalbuterol* (Xopenex* HFA) 15 Gm Inha, 1 PUFFS INH Q8H PRN for WHEEZING AND SOB, INHALER 08/18/16 Beclomethasone Dip* (Qvar 40*) 7.3 Gm Inha, 1 PUFF INH BID, #1 INHALER 08/18/16 Ergocalciferol (Vitamin D2) (VITAMIN D2) 50,000 Unit Capsule, 38486 UNIT PO Q7D for QSATURDAY, CAP 08/18/16 Metformin Hcl* (Metformin Hcl*) 1,000 Mg Tablet, 1000 MG PO WITH BREAKFAST DINNE, #60 TAB 08/18/16 Famotidine* (Famotidine*) 20 Mg Tablet, 20 MG PO BID, #60 TAB 08/18/16 Hydrocodone/Acetaminophen (Lorcet Hd 10-325 mg Tablet) 1 Each Tablet, 1 EACH PO QID, TAB 08/18/16 Gabapentin* (Gabapentin*) 300 Mg Capsule, 600 MG PO TID, #90 CAP 08/18/16 Discontinued Reported Medications Atorvastatin Calcium* (Atorvastatin Calcium*) 20 Mg Tablet, 20 MG PO QHS, #30 TAB 08/18/16 Medications Current Medications IV Flush (NS 3 ml) 3 ml PER PROTOCOL IV ; Start 03/16/19 at 09:30 Docusate Sodium (Colace) 100 mg Q12H PRN PO .CONSTIPATION; Start 03/16/19 at 09:30 Enoxaparin Sodium (Lovenox) 30 mg DAILY SC Last administered on 03/19/19at 08:50; Admin Dose 30 MG; Start 03/17/19 at 09:00 Albuterol (Proventil 0.083% (Neb)) 2.5 mg Q4H RESP THERAPY NEB Last administered on 03/19/19at 09:26; Admin Dose 2.5 MG; Start 03/16/19 at 13:00 Ipratropium [place] (Atrovent 0.02% (Neb)) 0.5 mg Q4H RESP THERAPY NEB Last administered on 03/19/19at 09:27; Admin Dose 0.5 MG; Start 03/16/19 at 13:00 Azithromycin 250 ml @ 250 mls/hr Q24H IV Last administered on 03/19/19 08:45; Admin Dose 250 MLS/HR; Start 03/16/19 at 09:30 Aspirin (Halfprin) 81 mg DAILY PO Last administered on 03/19/19 08:45; Admin Dose 81 MG; Start 03/16/19 at 09:30 Atorvastatin Calcium (Lipitor) 80 mg QHS PO Last administered on 03/18/19at 20:34; Admin Dose 80 MG; Start 03/16/19 at 21:00 Gabapentin (Neurontin) 600 mg TID PO Last administered on 03/19/19 12:31; Admin Dose 600 MG; Start 03/16/19 at 13:00 Metoprolol Succinate (Toprol Xl) 50 mg DAILY PO Last administered on 03/19/19 08:46; Admin Dose 50 MG; Start 03/17/19 at 09:00 Spironolactone (Aldactone) 50 mg DAILY PO Last administered on 03/19/19 08:45; Admin Dose 50 MG; Start 03/17/19 at 09:00 Miscellaneous Information 1 ea NOTE XX ; Start 03/16/19 at 11:00 Glucose (Glutose) 15 gm Q15M PRN PO DECREASED GLUCOSE; Start 03/16/19 at 11:00 Glucose (Glutose) 22.5 gm Q15M PRN PO DECREASED GLUCOSE; Start 03/16/19 at 11:00 Dextrose (D50w Syringe) 25 ml Q15M PRN IV DECREASED GLUCOSE; Start 03/16/19 at 11:00 Dextrose (D50w Syringe) 50 ml Q15M PRN IV DECREASED GLUCOSE; Start 03/16/19 at 11:00 Glucagon (Glucagen) 1 mg Q15M PRN IM DECREASED GLUCOSE; Start 03/16/19 at 11:00 Glucose (Glutose) 15 gm Q15M PRN BUCCAL DECREASED GLUCOSE; Start 03/16/19 at 11:00 Nicotine (Nicoderm 21 Mg/ 24hr) 1 patch DAILY TRANSDERM Last administered on 03/19/19 08:51; Admin Dose 1 PATCH; Start 03/17/19 at 09:00 Fish Oil (Fish Oil) 1,000 mg BID PO Last administered on 03/19/19 08:45; Admin Dose 1,000 MG; Start 03/17/19 at 10:30 Cefepime HCl 50 ml @ 100 mls/hr Q12 IVPB Last administered on 03/19/19at 08:45; Admin Dose 100 MLS/HR; Start 03/17/19 at 12:30 Insulin Glargine (Lantus) 35 units BID SC Last administered on 03/19/19 08:49; Admin Dose 35 UNITS; Start 03/17/19 at 21:00 Acetaminophen (Tylenol Tab) 1,000 mg Q6H PRN PO MILD PAIN(1-3)OR ELEVATED TEMP Last administered on 03/18/19at 00:49; Admin Dose 1,000 MG; Start 03/18/19 at 01:00 Zolpidem Tartrate (Ambien) 5 mg HS PRN PO INSOMNIA Last administered on 03/18/19 00:49; Admin Dose 5 MG; Start 03/18/19 at 01:00 Diagnostic Test (Pha) (Accu-Chek) 1 ea 02 XX ; Start 03/19/19 at 02:00 Insulin Aspart (Novolog Insulin Pen) 12 unit WITH MEALS SC Last administered on 03/19/19at 12:38; Admin Dose 12 UNIT; Start 03/19/19 at 08:00 Acetaminophen/ Hydrocodone Bitart ([place] (5/325)) 1 tab Q4H PRN PO MODERATE PAIN LEVEL 4-6 Last administered on 03/18/19at 21:28; Admin Dose 1 TAB; Start 03/18/19 at 21:00 Acetaminophen/ Hydrocodone Bitart ([place] (5/325)) 2 tab Q4H PRN PO PAIN LEVEL 7-10; Start 03/18/19 at 21:00 Insulin Aspart (Novolog Insulin Pen) (Adult SC Insulin - Moder... Q4 SC Last administered on 03/19/19at 12:38; Admin Dose 8 UNIT; Start 03/19/19 at 01:00 Assessment/Plan Assessment/Plan (Daily) IMP: 1. RUL>RLL pneumonia--much improved and afebrile. Given the clinical response--as well as radiographic improvement--would hold off on collecting sputa for AF[employer] RECS: 1. Complete 8 day course of abx 2. Close outpatient follow-up with repeat PA and lat CXR in 4-6 weeks ANDREAS ALFONSO MD Mar 19, 2019 15:13
== END 2019-03-19 18:50 | disposition home health service (06) | DRG 190 ==
LOC: E/R 00:20 → 5EC 01:56 → CANRESERV 12:25 → 5EC 03-17 14:12
PROVIDERS: ADMIT Internal Medicine; ATTEND Internal Medicine
PROC: 02HV33Z Insertion of Infusion Device into Superior Vena Cava, Percutaneous Approach (ICD-10-PCS; principal; 2019-03-19)
PROC: B54NZZA Ultrasonography of Left Upper Extremity Veins, Guidance (ICD-10-PCS; 2019-03-19)
DX: J44.1 Chronic obstructive pulmonary disease with (acute) exacerbation (principal); J18.1 Lobar pneumonia, unspecified organism; N17.9 Acute kidney failure, unspecified; E87.1 Hypo-osmolality and hyponatremia; E87.5 Hyperkalemia; I10 Essential (primary) hypertension; F17.210 Nicotine dependence, cigarettes, uncomplicated; J44.0 Chronic obstructive pulmonary disease with (acute) lower respiratory infection; I25.10 Atherosclerotic heart disease of native coronary artery without angina pectoris; E78.5 Hyperlipidemia, unspecified; E11.42 Type 2 diabetes mellitus with diabetic polyneuropathy; Z79.82 Long term (current) use of aspirin; Z79.4 Long term (current) use of insulin; Z95.5 Presence of coronary angioplasty implant and graft
CPT/HCPCS: 36415; 36569; 71045; 71250; 76937; 78582; 80053; 80061; 81003; 82550; 82553; 82962; 83036; 83605; 83735; 84100; 84484; 85025; 85378; 85610; 85730; 86703; 87081; 87086; 87400; 93005; 94640; 94664; 96374; 96375; A9540; J0456; J0692; J0696; J1650; J1815; J2270; J2405; J2930; J7030